=== PATIENT | male | born 1950 | race Caucasian/White ===

== ENCOUNTER 2023-06-09 08:01 | Day surgery (SDC) | payer MEDICARE, SELFPAY ==
[2023-06-09 08:32] VITALS: BP 142/76; PULSE 66; RESP 20; TEMP 36.8; O2SAT 98
[2023-06-09] MEDS: Lactated Ringers 1,000 ML 100 ML IVCONT (08:45)
--- NOTE | 2023-06-09 08:49 | P.CONAN_ITS ---
HPI - Anesthesia Eval Consult details Narrative: Colonoscopy [facility] Past Medical History Medical History (Updated 06/08/23 @ 14:18 by Vidhya Rizvi RN) Arthritis Cataracts, bilateral Degenerative disc disease, thoracic Family History Family history of problems with anesthesia: No Surgical History Surgical History (Updated 06/08/23 @ 14:18 by Vidhya Rizvi RN) H/O colonoscopy H/O knee surgery History of back surgery History of Problems with Anesthesia: No Social History Social History Patient Tobacco Use Status: Never used Tobacco Are you DNR?: No Advance Directives: No Advance Directives Information Provided: Yes Meds Allergies Allergy/AdvReac Type Severity Reaction Status Date / Time No Known Allergies Allergy Verified 06/08/23 14:18 Active Medications: Current Medications Lactated Ringer's (Lr) 1,000 mls @ 100 mls/hr IVCONT .Q10H [place] Last Admin: 06/09/23 08:45 Dose: 100 mls/hr Home Medications Medication Instructions Recorded Confirmed Last Taken Type Multi Vitamin 06/08/23 06/08/23 Unknown History Exam Exam Date and Time: June 09, 2023 0849 Height,Weight and Vital Signs: Height 5 ft 11 in Weight 97.522 kg Last Vital Signs Temp 98.3 F 06/09/23 08:32 Pulse 66 06/09/23 08:32 Resp 20 06/09/23 08:32 BP 142/76 H 06/09/23 08:32 Pulse Ox 98 06/09/23 08:32 O2 Del Method Room Air 06/09/23 08:32 Airway Mallampati Class: II TM Dist: >3cm Heart: rrr Lungs: cta Assessment and Plan Assessment Anesthesia Assessment: Anesthesia Plan Discussed and Chart Reviewed Final Anesthetic Review Family History of Problems with Anesthesia: No History of Problems with Anesthesia: No NPO: Yes ASA Class: II Final Preanesthetic Review: No Changes in Pt Med Stat, Meds/Allgs Chart Reviewed, Consent Obtained/Reviewed and Anes Risks/Benef Reviewed Patient Risk: Low Procedure Risk: Low Anesthetic Plan Anesthetic Plan: MAC: and Agree w/ Assess. and Plan Disposition: Standard PACU
--- NOTE | 2023-06-09 09:36 | P.HPSUR_ITS ---
Pre-Procedural Eval Section A Date of Service: 06/09/23 Section B Chief Complaint: Encounter for screening for malignant neoplasm Details of Present Illness: see H&P no changes Relevant Family History (Specify if Yes): No Relevant Social History: None Present Medications: see Short Stay Collaborative assessment Medical History: No relevant PMH History of Previous Operations: No relevant previous surgery Allergies: Allergies Allergy/AdvReac Type Severity Reaction Status Date / Time No Known Allergies Allergy Verified 06/08/23 14:18 Review of Systems Sugical H&P ROS: Negative: Constitution, Cardiovascular, Respiratory, Neurologic al, Psychiatric, Hem-Onc, Allergic/Immunologic, Gastrointestinal, Genitourinary, Musculoskeletal, Integumentary, Endocrine and Eyes/Ears/Nose/Throat Exam Surgical H&P Exam: Normal: HEENT, Normal: Heart, Normal: Lungs, Normal: Extremities, Normal: Abdomen, Normal: Skin and Normal: Neurological Plan Diagnosis/Plan: Unchanged I have reviewed the history and physical and performed a pertinent physical examination on my patient. No changes have occurred unless specified. Time Spent With Patient Time: Total time managing care of this patient today ____ minutes.
--- NOTE | 2023-06-09 10:06 | P.BOP_ITS ---
Brief Operative Note Date of Service: 06/09/23 Surgeon: Ar Beach Anesthesia: GETA and MAC Was an Crop Duster Helper used for this Procedure?: No Estimated blood loss (mL): 2 Pathology: other Condition: stable Disposition: PACU
[2023-06-09 10:11] VITALS: BP 120/79; PULSE 66; RESP 18; TEMP 36.1; O2SAT 93
[2023-06-09 10:26] VITALS: BP 146/82; PULSE 59; RESP 18; TEMP 36.2; O2SAT 96
--- NOTE | 2023-06-09 12:50 | OP_ITS ---
DATE OF SERVICE: 06/09/2023 SURGEON: Ar Beach MD INDICATIONS: Colon cancer screening. PREOPERATIVE DIAGNOSIS: POSTOPERATIVE DIAGNOSIS: PROCEDURE PERFORMED: Colonoscopy to the terminal ileum with biopsy. ESTIMATED BLOOD LOSS: COMPLICATIONS: ANESTHESIA: Monitored anesthesia care. ASSISTANTS: SPECIMENS: DESCRIPTION OF PROCEDURE: A history and physical was performed. The risks and benefits of the procedure were explained to the patient. Informed consent was obtained. The patient was placed in the left lateral decubitus position. A digital rectal exam was performed and was found to be normal. The Olympus pediatric video colonoscope was introduced into the rectum and advanced to the cecum. The cecum was identified by transillumination, palpation, and identification of ileocecal valve examination was performed. The scope was removed. He tolerated the procedure well and was returned to the recovery area in stable condition. FINDINGS: The terminal ileum was examined and appeared normal. The visualized colonic mucosa was normal. The quality of the prep was good. A single polyp measuring less than 5 mm was identified at 35 cm from the anal verge. This was removed with a biopsy forceps. No other polyps were identified. Retroflexed examination showed small internal hemorrhoids. There was very mild sigmoid diverticulosis. IMPRESSION: Colon polyp. RECOMMENDATION: Follow up the biopsy results. MD EM Goodwin/MARCELLOL / [id number]
== END 2023-06-09 10:42 | disposition home or self-care (01) ==
PROVIDERS: Visit Provider Internal Medicine Gastroenterology
PROC: 0DJD8ZZ Inspection of Lower Intestinal Tract, Via Natural or Artificial Opening Endoscopic (ICD-10-PCS; CPT 45378; principal; 2023-06-09 09:20)
DX: Z12.11 Encounter for screening for malignant neoplasm of colon (principal); K63.5 Polyp of colon; K57.30 Diverticulosis of large intestine without perforation or abscess without bleeding; K64.8 Other hemorrhoids; Z80.42 Family history of malignant neoplasm of prostate; M19.90 Unspecified osteoarthritis, unspecified site
CPT/HCPCS: 45380; 88305; J3010

== ENCOUNTER 2024-01-15 09:11 | Outpatient (AMB) | payer MEDICARE, SELFPAY ==
[2024-01-15 10:20] VITALS: BP 120/72; PULSE 83; TEMP 36.5; O2SAT 96; BMI 30.4
--- NOTE | 2024-01-15 10:20 | AM.OFFWIN_ITS ---
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 Pt does not have a Primary care doctor and has not been seen for years. Denies any chronic conditions. In ofice A1C: 5.8% (PreDM). Explained to Pt that sometimes low levels of Vitamin D, Folic acid or B12 could contribute to his symptoms. [facility] Medical History (Updated 06/08/23 @ 14:18 by Vidhya Rizvi RN) Cataracts, bilateral Arthritis Degenerative disc disease, thoracic Surgical History (Updated 06/08/23 @ 14:18 by Vidhya Rizvi RN) History of back surgery H/O knee surgery H/O colonoscopy Social History Patient Tobacco Use Status: Never used Tobacco Review of Systems Const All systems reviewed & are unremarkable except as noted in HPI and below Physical Exam Vital Signs: Last Vital Signs Temp 97.7 F 01/15/24 10:20 Pulse 83 01/15/24 10:20 BP 120/72 01/15/24 10:20 Pulse Ox 96 01/15/24 10:20 Oxygen Delivery Method Room Air 01/15/24 10:20 BMI result Body Mass Index 30.4 Const General: comfortable and no acute distress Orientation/consciousness: patient oriented x3 Neuro General: patient oriented x3, gait normal and no focal motor deficits Motor exam (neuro): 5/5 motor strength present throughout Extrem General: Yes capillary refill normal Right lower extremity: normal to inspection, full ROM and foot Details: no edema; no laceration and no ecchymosis Left lower extremity: normal to inspection, full ROM and foot Details: normal capillary refill Psych Speech and movement: Clear speech present Attitude: cooperative Results AMB Hemoglobin A1c AMB Hemoglobin A1c 5.8 % Last Edit by ZAKI Benson on 01/15/24 11 :11 Results Reviewed Results Reviewed: Laboratory Last Values Hgb A1c (Clinic) 5.8 % (4.0-6.0) 01/15/24 11:10 Assessment & Plan Assessment & Plan (1) Peripheral neuropathy: Code(s): G62.9 - Polyneuropathy, unspecified Qualifiers: Peripheral neuropathy type: polyneuropathy, unspecified Qualified Code(s): G62.9 - Polyneuropathy, unspecified Plan: - Ordered Lab work - Pt will need to establish with new PCP. Orders: Orders Vitamin B12 and Folate Today G62.9 - Polyneuropathy, unspecified AMB Hemoglobin A1c Today Z13.9 - Encounter for screening, unspecified Complete Blood Count Auto Diff Today G62.9 - Polyneuropathy, unspecified Vitamin D 25-OH Total Today G62.9 - Polyneuropathy, unspecified Coding Level of Care Code New Pt Level 3 (86284) Diagnoses Peripheral polyneuropathy G62.9 Peripheral neuropathy type: polyneuropathy, unspecified Time Spent (min) 15
== END 2024-01-15 11:23 | disposition home or self-care (01) ==
PROVIDERS: Visit Provider Nurse Practitioner Family
DX: G62.9 Polyneuropathy, unspecified (principal); R73.03 Prediabetes
CPT/HCPCS: 83036; 99203

== ENCOUNTER 2024-01-15 11:13 | Outpatient (REF) | payer MEDICARE, SELFPAY ==
[2024-01-15 13:14] LABS: MANUAL DIFF FLAG NO
[2024-01-15 13:32] LABS: Basophils Absolute Auto 0.1 X10*3/uL (0.0-0.2); Basophils Percent Auto 0.8 % (0-2); Eosinophils Absolute Auto 0.3 X10*3/uL (0.0-0.4); Eosinophils Percent Auto 3.8 % (0-4); Hematocrit 47.9 % (42.0-52.0); Hemoglobin 16.3 g/dl (14.0-18.0); Imm Gran Abs Auto 0.02 X10*3/uL (0.00-0.03); Imm Gran Pct Auto 0.3 % (0.0-0.4); Lymphocytes Absolute Auto 1.9 X10*3/uL (1.2-4.9); Mean Corpuscular Hemoglobin 32.1 pg (27.0-33.0); Mean Corpuscular Volume 94.5 fL (80.0-98.0); Mean Platelet Volume 12.2 fL (9.4-12.4); Monocytes Absolute Auto 0.7 X10*3/uL (0.1-1.2); Monocytes Percent Auto 10.6 % (2-11); Neutrophils Absolute Auto 3.7 x10*3/uL (2.0-8.3); Neutrophils Percent Auto 56.5 % (45-73); Platelet Count 159 X10*3/uL (160-400); Red Blood Count 5.07 X10*6/uL (4.60-5.80); Red Cell Distribution Width 12.7 % (11.0-16.0); White Blood Count 6.6 X10*3/uL (4.8-10.8)
[2024-01-15 14:41] LABS: Folate 15.2 ng/mL (> or = 4.0); Vitamin B12 849 pg/mL (200-900)
[2024-01-15 15:04] LABS: Vitamin D 25-OH Total 46.4 ng/mL (>30)
== END 2024-01-15 11:14 | disposition home or self-care (01) ==
LOC: HO.HMGCLDS 11:13
PROVIDERS: PCP Nurse Practitioner Family; Visit Provider Nurse Practitioner Family
DX: G62.9 Polyneuropathy, unspecified (principal)
CPT/HCPCS: 36415; 82306; 82607; 82746; 85025

== ENCOUNTER 2024-03-11 08:55 | Outpatient (AMB) | payer MEDICARE, SELFPAY ==
[2024-03-11 09:06] VITALS: BP 128/76; PULSE 77; RESP 14; TEMP 36.6; O2SAT 99; BMI 29.0
--- NOTE | 2024-03-11 09:06 | A.OFFPC_ITS ---
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: No Accompanied by: Self / Same As Patient Allergies No Known Allergies Allergy (Verified 03/11/24 09:20) Medication List - Last Reconciled 03/11/24 by Owen Knott CNP [Multi Vitamin ] Tobacco use date assessed: 03/11/24 Fall risk assessment: No Falls in past year Last assessed Fall Risk: 03/11/24 Dental Screening Dental Screen Date: 03/11/24 Did you have a dental visit in the last 12 months?: Yes Did you have a dental problem in the last 6 months where you did not have access to dental care?: No Was dental information given to patient?: Patient has dentist HPI HPI Comments History of Present Illness Details New patient Prior PCP:?[facility] Dr. Al Last office visit/CPE: About 4 years Acute issue(s): BLE peripheral neuropathy Reports persistent burning sensation to the toes of both feet for the past 4 months -Not on meds He had CBC, A1c, vit D, vit b12, and folate labs done in January 2024 PMHx: Prediabetes, BLE peripheral neuropathy, back arthritis, thoracic degenerative disc disease, SurgHx: Bilateral cataract surgery, herniated disc surgery, cataract removal with insertion of prosthetic lens both eyes in 06/2022 FHx: Brother: Thyroid disease SocHx: Nonsmoker. Nondrinker. No recreation drugs. Last eye appointment was in [address] Ross Last colonoscopy was with [facility] in 06/2023: Benign polyps. Due to f/u in 10 years Up-to-date on shingles, PNA, and flu vaccines [facility] Medical History Cataracts, bilateral Arthritis Degenerative disc disease, thoracic Surgical History (Updated 03/11/24 @ 09:14 by ZAKI Gonzalez) H/O cataract removal with insertion of prosthetic lens History of back surgery H/O knee surgery H/O colonoscopy Family History Family/Other Thyroid disease Social History Household Members: None Both parents involved: No Caregiver staying overnight: No Housing: House Are you a primary hourly caregiver to a significant other at home: No Do you presently have visiting nurse or other home services: No 75 years or older and lives alone: No Alcohol intake: never Patient Tobacco Use Status: Never used Tobacco e-Cigarette/Vaping Use: Never Used service: Yes Current occupational status: employed and retired Cognitive needs: No Hearing needs: No Vision needs: No Questionnaire PHQ-9 Over the last 2 weeks, how often have you been bothered by any of the following problems? 1. Little interest or pleasure in doing things: not at all 2. Feeling down, depressed, or hopeless: not at all 3. Trouble falling or staying asleep, or sleeping too much: not at all 4. Feeling tired or having little energy: not at all 5. Poor appetite or overeating: not at all 6. Feeling bad about yourself - or that you are a failure or have let yourself or your family down: not at all 7. Trouble concentrating on things, such as reading the newspaper or watching television: not at all 8. Moving or speaking so slowly that other people could have noticed. Or the opposite - being so fidgety or restless that you have been moving around a lot more than usual: not at all 9. Thoughts that you would be better off or of hurting yourself in some way: not at all Total score: 0 Depression Screening Interpretation: Negative Depression Screening Done: Yes 36229 - PHQ-9 Billing: Yes Source: Developed by Drs. Paul Babb, Stephanie Sousa, Jamie Daniel and colleagues, with an educational sam from [employer]. Thrive Questionnaire Date Thrive assessed: 03/11/24 I am a: Patient What is your living situation today?: I have a steady place to live Within the past 12 months, did the food you bought not last and you didn't have the money to get more?: Never true Within the past 12 months, did you worry whether your food would run out before you got money to buy more?: Never true Do you have trouble paying for medicines?: No Do you have trouble getting transportation to medical appointments?: No Do you have trouble paying your heating and electricity bill?: No Do you have trouble taking care of your child, family member or friend?: No Do you have trouble with day-to-day activities such as bathing, preparing meals, shopping, managing finances, etc.?: No Are you currently unemployed and looking for a job?: No Are you interested in more education?: No Please select the resources that you would like help with: None Currently or been in a relationship where the following occur: no concerns reported THRIVE Score: 0 AUDIT C Alcohol Use Questionnaire (AUDIT-C) 1. How often do you have a drink containing alcohol?: Never 3. How often do you have six or more drinks on one occasion?: Never Total Score: 0 HAYDEN-7 AMB Questionnaire HAYDEN-7 Date HAYDEN - 7 assessed: 03/11/24 Feeling nervous, anxious, or on edge: 0 = Not at all Not being able to stop or control worryin = Not at all Worrying too much about different things: 0 = Not at all Trouble relaxin = Not at all Being so restless that it is hard to sit still: 0 = Not at all Becoming easily annoyed or irritable: 0 = Not at all Feeling afraid as if something awful might happen: 0 = Not at all Total HAYDEN-7 score (0-4 normal; 5-9 mild; 10-14 moderate; 15-21 severe): 0 Source: Developed by Drs. Paul Babb, Stephanie Sousa, Jamie Daniel and colleagues, with an educational sam from [employer]. HAYDEN-7 Assessment Billing HAYDEN-7 Assessment Tool: HAYDEN-7 Assessment 29692 Review of Systems Const Details: Denies chills, Denies fatigue, Denies fever(s), Denies headache(s) and Denies weakness HEENT Denies change in vision, Denies dizziness, Denies headache(s), Denies hearing loss, Denies nasal congestion, Denies sinus pain, Denies sinus pressure and Denies sore throat Card Denies chest pain, Denies lightheadedness, Denies dyspnea and Denies other (palpitations) Resp Denies cough, Denies dyspnea and Denies wheezing GI Denies abdominal pain, Denies melena, Denies hematochezia, Denies change in bowel habits, Denies dyspepsia and Denies nausea Denies hematuria and Denies dysuria Musc Denies abnormal gait, Denies myalgias, Denies arthralgias, Denies numbness and Denies tingling Skin/Breast Denies rash, Denies unusual bruising and Denies wounds Neuro Denies abnormal gait, Denies dizziness, Denies headache(s), Denies memory loss, Denies numbness, Denies Sensory deficit (Neuro), Denies tingling and Denies weakness Psych Denies anxiety, Denies depression and Denies memory loss Endo Denies cold intolerance, Denies fatigue, Denies heat intolerance, Denies polydipsia and Denies polyuria Cesar/Lymph Denies easy bleeding and Denies easy bruising Aller/Immun Denies wheezing Physical exam (Primary Care) Vital Signs: Last Vital Signs Temp 97.8 F 03/11/24 09:06 Pulse 77 03/11/24 09:06 Resp 14 03/11/24 09:06 BP 128/76 03/11/24 09:06 Pulse Ox 99 03/11/24 09:06 Oxygen Delivery Method Room Air 03/11/24 09:06 BMI result Body Mass Index 29.0 Tobacco/Smoking Status: Tobacco use Status Tobacco use date assessed 03/11/24 03/11/24 09:16 Patient Tobacco Use Status Never used Tobacco 03/11/24 09:16 e-Cigarette/Vaping Use Never Used 03/11/24 09:16 Depression Screening Interpretation: Negative Currently or been in a relationship where the following occur: no concerns rep orted Const Other: General: no acute distress, well developed, alert and awake Nutritional Appearance: well nourished Orientation/consciousness: patient oriented x3 HENMT Head: Yes normocephalic and Yes atraumatic Ears: hearing grossly normal bilaterally and TM's normal bilaterally General nose exam: Normal external nose present and Normal nares present Mouth: Normal oral and palatal mucosa present and moist mucous membranes Teeth and gingiva: dentition normal Throat: Yes oropharynx normal Eyes Pupils: Equal, round and reactive pupils present and Pupil accommodation reflex normal EOM: EOMs intact bilaterally Neck Neck: Yes normal visual inspection, Yes no lymphadenopathy and Yes trachea midline Thyroid: Thyroid normal Carotids: no bruits Lymphatic: no lymphadenopathy noted Chest Chest palpation & inspection: normal inspection of the chest Resp Effort & Inspection: normal respiratory effort Auscultation: clear to auscultation bilaterally Cardio Rate: regular rate Rhythm: regular rhythm Heart sounds: S1 normal heart sound present, S2 normal heart sound present, no gallops, no murmurs and no rubs Bruits: no abdominal aortic bruits and no carotid bruits GI Palpation (GI): No Abdominal aortic bruit present, Soft to palpation, nontender, No hepatosplenomegaly present and No Rebound tenderness present Auscultation: normal bowel sounds General: Yes no CVA tenderness Back/Spine/Pelvis Back: no CVA tenderness Cervical Spine: cervical ROM normal and No Cervical spine tenderness Thoracic/Lumbar Spine: thoraco-lumbar ROM normal, No pain with thoraco-lumbar ROM, No thoracic spinal tenderness and No lumbar spinal tenderness Skin General: warm and dry. Normal skin color. Normal skin turgor Lesions: no lesions Rashes: no rashes Trauma: no lacerations or abrasions Wounds: no wounds Nails: normal Neuro General: patient oriented x3, gait normal and CN's II-XI intact bilaterally Cranial nerves: Yes Equal, round and reactive pupils present Cognition (Neuro): normal cognition Gait exam (Neuro): Normal gait present Motor exam (neuro): 5/5 motor strength present throughout Sensory Exam: No Sensory deficit (Neuro) Deep tendon reflexes (DTR's): Right patellar reflex intensity grade: 2+ and Left patellar reflex intensity grade: 2+ Extrem General: Yes normal to inspection, No edema and No calf tenderness Psych Appearance: grossly normal Affect: normal affect Attitude: cooperative Thought process: Normal thought process present Assessment and Plan Assessment & Plan (1) Normal physical examination, routine: Code(s): Z00.00 - Encounter for general adult medical examination without abnormal findings Plan: No significant physical restrictions or limitations noted Healthy diet and routine exercise encouraged 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 Take as prescribed. Call and report persistent or worsening symptoms within 2 weeks. Follow-up in 4 weeks or return sooner with worsening or new symptoms Verbalized understanding and agreed with treatment plan (3) Prediabetes: Code(s): R73.03 - Prediabetes Plan: Recent A1c was 5.8% Healthy diet and routine exercise encouraged Advised to limit carbs such as rice, bread, potato, or pasta Will continue to monitor Verbalized understanding and agreed with the treatment plan (4) Laboratory tests ordered as part of a complete physical exam (CPE): Code(s): Z00.00 - Encounter for general adult medical examination without abnormal findings Plan: Fasting labs ordered as part of a complete physical exam. Advised to fast for at least 10 hours before getting labs drawn. May drink water Verbalized understanding and agreed with treatment plan. Orders: Orders Lipid Panel Today TSH reflex Free T4 Today PSA, Ultra Sensitive Today Comprehensive [place]. Panel Fast Today UA CC w/rflx Micro + Cult Today Magnesium Today Medications: New gabapentin 300 mg PO BEDTIME 30 days 30 caps 2RF Coding Level of Care Code New Pt Level 3 (75617) New Pt Prev Care >65yr (98777) Diagnoses Normal physical examination, routine Z00.00 Peripheral neuropathy G62.9 Prediabetes R73.03 Laboratory tests ordered as part of a complete physical exam (CPE) Z00.00 Additional Codes HAYDEN-7 Assessment Billing - HAYDEN-7 Assessment Tool: HAYDEN-7 Assessment [id number] ([id number])
== END 2024-03-11 09:47 | disposition home or self-care (01) ==
PROVIDERS: Visit Provider Nurse Practitioner Family
DX: G62.9 Polyneuropathy, unspecified (principal); R73.03 Prediabetes
CPT/HCPCS: 99203; 99213

== ENCOUNTER 2024-03-12 07:15 | Outpatient (REF) | payer MEDICARE, SELFPAY ==
[2024-03-12 11:20] LABS: Appearance Urine Cloudy; Color Urine Yellow; Glucose Urine UA Negative (Negative); Leukocyte Esterase Urine Negative (Negative); Nitrite Urine Negative (Negative); Urine Blood Negative (Negative); Urine Ketones Negative (Negative); Urine Protein Negative (Neg-Trace)
[2024-03-12 12:12] LABS: Alanine Aminotransferase 40 U/L (0-40); Albumin Level 4.3 g/dL (3.5-5.0); Alkaline Phosphatase 77 U/L (39-117); Anion Gap 13 (12-20); Aspartate Amino Transferase 31 U/L (5-37); Bilirubin Total 0.6 mg/dL (0.0-1.0); Blood Urea Nitrogen 31 mg/dL (9-16); Calcium 9.9 mg/dL (8.4-10.2); Carbon Dioxide 27 mmol/L (22-29); Chloride 107 mmol/L (96-108); Cholesterol 166 mg/dL (<200); Estimated Glomerular Filt Rate > 60; Glucose Fasting 102 mg/dL (60-99); HDL Cholesterol 42 mg/dL (>40); LDL Cholesterol Calculated 104 mg/dL (<100); Magnesium 2.2 mg/dL (1.6-2.6); Potassium 4.8 mmol/L (3.3-5.1); Sodium 142 mmol/L (135-145); Total Protein 7.6 g/dL (6.5-8.0); Triglycerides 102 mg/dL (<150)
[2024-03-12 12:29] LABS: TSH reflex Free T4 1.04 uIU/mL (0.32-4.0)
[2024-03-16 21:49] LABS: PSA, Ultra Sensitive 1.21 ng/mL
== END 2024-03-12 07:16 | disposition home or self-care (01) ==
LOC: HO.HMGCLDS 07:15
PROVIDERS: PCP Nurse Practitioner Family; Visit Provider Nurse Practitioner Family
DX: Z00.00 Encounter for general adult medical examination without abnormal findings (principal); Z12.5 Encounter for screening for malignant neoplasm of prostate
CPT/HCPCS: 36415; 80053; 80061; 81003; 83735; 84153; 84443

== ENCOUNTER 2024-04-15 07:44 | Outpatient (AMB) | payer MEDICARE, SELFPAY ==
--- NOTE | 2024-04-15 07:51 | MHC.PC.OV ---
Vital Signs 04/15/24 08:00 Height 5 ft 11 in Weight 206 lb 7 oz BMI 28.8 BP 126/70 Blood Pressure Location Rt brachial Position Sitting Respiration 14 Pulse 61 Pulse Source Pulse Oximeter Temp 97.8 F Temp Source Temporal Artery Scan Pulse Oximetry (%) 99 Intake Visit Reasons: f/u burning in both feet Allergies No Known Allergies Allergy (Verified 04/15/24 08:08) Tobacco use date assessed: 03/11/24 Dental Screening Dental Screen Date: 03/11/24 HPI HPI Comments History of Present Illness Details 74-year-old male presents for burning sensation to the toes of both feet. Gabapentin 300 mg every night was ordered for his symptoms. He admits to taking her medication as prescribed without adverse reactions. He notes significant improvement of his symptoms. He notes that the burning sensation to his toes is less frequent and has not progressed since his last visit. He has an appointment scheduled with Podiatry in June. No acute symptoms. [facility] Medical History Cataracts, bilateral Arthritis Degenerative disc disease, thoracic Surgical History (Updated 03/11/24 @ 09:14 by ZAKI Gonzalez) H/O cataract removal with insertion of prosthetic lens History of back surgery H/O knee surgery H/O colonoscopy Family History Family/Other Thyroid disease Social History Household Members: None Both parents involved: No Caregiver staying overnight: No Housing: House Are you a primary home care physical therapist to a significant other at home: No Do you presently have visiting nurse or other home services: No 75 years or older and lives alone: No Alcohol intake: never Patient Tobacco Use Status: Never used Tobacco e-Cigarette/Vaping Use: Never Used service: Yes Current occupational status: employed and retired Cognitive needs: No Hearing needs: No Vision needs: No Questionnaire Thrive Questionnaire Date Thrive assessed: 03/11/24 HAYDEN-7 AMB Questionnaire HAYDEN-7 Date HAYDEN - 7 assessed: 03/11/24 Source: Developed by Drs. Paul Babb, Stephanie Sousa, Jamie Daniel and colleagues, with an educational sam from [employer]. Review of Systems Const Details: Const Denies chills, Denies fatigue, Denies fever(s), Denies headache(s) and Denies weakness ENT Denies dizziness and Denies headache(s) Card Denies chest pain, Denies lightheadedness, Denies dyspnea and Denies other (Palpitations) Resp Denies cough, Denies dyspnea, Denies wheezing and Denies other ( shortness of breath) GI Denies abdominal pain, Denies melena, Denies hematochezia, Denies change in bowel habits, Denies dyspepsia and Denies nausea Denies hematuria and Denies dysuria Musc Denies abnormal gait, Denies myalgias, Denies arthralgias, Denies numbness and Denies tingling Skin/Breast Denies rash, Denies unusual bruising and Denies wounds Neuro Denies abnormal gait, Denies dizziness, Denies headache(s), Denies memory loss, Denies numbness, Denies Sensory deficit (Neuro), Denies tingling and Denies weakness Psych Denies anxiety, Denies depression, Denies memory loss Endo Denies cold intolerance, Denies fatigue, Denies heat intolerance, Denies polydipsia and Denies polyuria Aller/Immun Denies wheezing Physical exam (Primary Care) BMI result Body Mass Index 28.8 Tobacco/Smoking Status: Tobacco use Status Tobacco use date assessed 03/11/24 04/15/24 07:52 Patient Tobacco Use Status Never used Tobacco 04/15/24 07:52 e-Cigarette/Vaping Use Never Used 04/15/24 07:52 Thrive Assessment: Date of Thrive Assessment Date Thrive assessed 03/11/24 04/15/24 07:52 Const Other: General: no acute distress and well developed Nutritional Appearance: well nourished Orientation/consciousness: patient oriented x3 HENMT Head: Yes normocephalic and Yes atraumatic Eyes General: appearance normal, both eyes and all related structures Pupils: Equal, round and reactive pupils present EOM: EOMs intact bilaterally Resp Effort & Inspection: normal respiratory effort Auscultation: clear to auscultation bilaterally Cardio Rate: regular rate Rhythm: regular rhythm Heart sounds: S1 normal heart sound present, S2 normal heart sound present, no gallops, no murmurs and no rubs GI Palpation (GI): No Abdominal aortic bruit present, Soft to palpation, nontender, No hepatosplenomegaly present and No Rebound tenderness present Auscultation: normal bowel sounds General: Yes no CVA tenderness Back/Spine/Pelvis Back: no CVA tenderness Cervical Spine: cervical ROM normal and No Cervical spine tenderness Thoracic/Lumbar Spine: thoraco-lumbar ROM normal, No pain with thoraco-lumbar ROM, No thoracic spinal tenderness and No lumbar spinal tenderness Extrem General: Yes normal to inspection, No edema and No calf tenderness Skin General: warm and dry. Normal skin color. Normal skin turgor Neuro General: patient oriented x3, gait normal and no focal neuro deficit Cranial nerves: Yes Equal, round and reactive pupils present Cognition (Neuro): normal cognition Gait exam (Neuro): Normal gait present Sensory Exam: No Sensory deficit (Neuro) Psych Appearance: grossly normal Affect: normal affect Attitude: cooperative Thought process: Normal thought process present Assessment and Plan Assessment & Plan (1) Peripheral neuropathy: Code(s): G62.9 - Polyneuropathy, unspecified Plan: Reports significant improvement with current treatment regimen Burning sensation to his toes is less frequent and has not progressed since his last visit Continue to take gabapentin 300 mg every night Encouraged to follow-up with Podiatry as planned Return in 6 months for health maintenance or sooner with worsening or new symptoms Verbalized understanding and agreed with the treatment plan (2) Laboratory tests ordered as part of a complete physical exam (CPE): Code(s): Z00.00 - Encounter for general adult medical examination without abnormal findings Plan: Recent labs reviewed with the patient; unremarkable for an except for slightly elevated fasting glucose. He he has a prediabetic. Healthy diet and routine exercise encouraged. Advised to limit carbs such as rice, pasta, potatoes, and bread Verbalized understanding and agreed with the treatment plan Coding Level of Care Code Est Pt Level 3 (09925) Diagnoses Peripheral neuropathy G62.9 Laboratory tests ordered as part of a complete physical exam (CPE) Z00.00
[2024-04-15 08:00] VITALS: BP 126/70; PULSE 61; RESP 14; TEMP 36.6; O2SAT 99; BMI 28.8
== END 2024-04-15 08:12 | disposition home or self-care (01) ==
PROVIDERS: PCP Nurse Practitioner Family; Visit Provider Nurse Practitioner Family
DX: G62.9 Polyneuropathy, unspecified (principal); Z00.00 Encounter for general adult medical examination without abnormal findings
CPT/HCPCS: 99213

== ENCOUNTER 2024-10-17 08:47 | Outpatient (AMB) | payer MEDICARE, SELFPAY ==
--- NOTE | 2024-10-17 08:50 | MHC.PC.OV ---
Vital Signs 10/17/24 08:54 10/17/24 09:10 Height 5 ft 11 in Weight 204 lb 4 oz BMI 28.5 BP 147/76 H 124/80 Blood Pressure Location Rt brachial Lt brachial Position Sitting Sitting Respiration 16 Pulse 71 Pulse Source Pulse Oximeter Temp 97.0 F Temp Source Temporal Artery Scan Pulse Oximetry (%) 99 Oxygen Delivery Method Room Air Intake Visit Reasons: 6 month health maintenance Intake Note: [facility] Required: No Allergies No Known Allergies Allergy (Verified 10/17/24 09:09) Medication List - Last Reconciled 10/17/24 by Owen Knott CNP gabapentin 300 mg PO BEDTIME 30 days [Multi Vitamin ] Tobacco use date assessed: 10/17/24 Fall risk assessment: No Falls in past year Last assessed Fall Risk: 10/17/24 Dental Screening Dental Screen Date: 10/17/24 Did you have a dental visit in the last 12 months?: Yes Did you have a dental problem in the last 6 months where you did not have access to dental care?: No Was dental information given to patient?: Patient has dentist HPI HPI Comments History of Present Illness Details The patient is a 74-year-old male presenting for a health maintenance follow-up visit. He has a history of prediabetes and peripheral neuropathy affecting both lower extremities. He also has osteoarthritis affecting his spine. Additionally, the patient has thoracic degenerative disease. He reports no current complaints and is adherent to his prescribed medication regimen of gabapentin for neuropathy. Health Maintenance - Advised the patient to continue a healthy diet. - Recommended regular exercise. - Ordered blood work to be done 2-3 days prior to the next visit, ensuring fasting for 10-12 hours and maintaining hydration with water only. - Scheduled a follow-up visit for physical examination in five months. [facility] Medical History (Updated 10/17/24 @ 09:17 by Owen Knott CNP) Cataracts, bilateral Arthritis Degenerative disc disease, thoracic Surgical History H/O cataract removal with insertion of prosthetic lens History of back surgery H/O knee surgery H/O colonoscopy Family History Family/Other Thyroid disease Social History (Reviewed 06/07/24 @ 08:08 by CARLEY Gonzalez Household Members: None Both parents involved: No Caregiver staying overnight: No Housing: House Are you a primary healthcare marketer to a significant other at home: No Do you presently have visiting nurse or other home services: No 75 years or older and lives alone: No Alcohol intake: never Patient Tobacco Use Status: Never used Tobacco e-Cigarette/Vaping Use: Never Used service: Yes Current occupational status: employed and retired Cognitive needs: No Hearing needs: No Vision needs: No Questionnaire PHQ-9 Over the last 2 weeks, how often have you been bothered by any of the following problems? 1. Little interest or pleasure in doing things: not at all 2. Feeling down, depressed, or hopeless: not at all 3. Trouble falling or staying asleep, or sleeping too much: not at all 4. Feeling tired or having little energy: not at all 5. Poor appetite or overeating: not at all 6. Feeling bad about yourself - or that you are a failure or have let yourself or your family down: not at all 7. Trouble concentrating on things, such as reading the newspaper or watching television: not at all 8. Moving or speaking so slowly that other people could have noticed. Or the opposite - being so fidgety or restless that you have been moving around a lot more than usual: not at all 9. Thoughts that you would be better off or of hurting yourself in some way: not at all Total score: 0 92238 - PHQ-9 Billing: Yes Source: Developed by Drs. Paul Babb, Stephanie Sousa, Jamie Daniel and colleagues, with an educational sam from [employer]. Thrive Questionnaire Date Thrive assessed: 10/17/24 I am a: Patient What is your living situation today?: I have a steady place to live Within the past 12 months, did the food you bought not last and you didn't have the money to get more?: Never true Within the past 12 months, did you worry whether your food would run out before you got money to buy more?: Never true Do you have trouble paying for medicines?: No Do you have trouble getting transportation to medical appointments?: No Do you have trouble paying your heating and electricity bill?: No Do you have trouble taking care of your child, family member or friend?: No Do you have trouble with day-to-day activities such as bathing, preparing meals, shopping, managing finances, etc.?: No Are you currently unemployed and looking for a job?: No Are you interested in more education?: No Please select the resources that you would like help with: None Currently or been in a relationship where the following occur: No concerns reported THRIVE Score: 0 AUDIT C Alcohol Use Questionnaire (AUDIT-C) 1. How often do you have a drink containing alcohol?: Monthly or less 2. How many drinks containing alcohol do you have on a typical day when you are drinking?: 1 or 2 3. How often do you have six or more drinks on one occasion?: Never Total Score: 1 HAYDEN-7 AMB Questionnaire HAYDEN-7 Date HAYDEN - 7 assessed: 10/17/24 Feeling nervous, anxious, or on edge: 0 = Not at all Not being able to stop or control worryin = Not at all Worrying too much about different things: 0 = Not at all Trouble relaxin = Not at all Being so restless that it is hard to sit still: 0 = Not at all Becoming easily annoyed or irritable: 0 = Not at all Feeling afraid as if something awful might happen: 0 = Not at all Total HAYDEN-7 score (0-4 normal; 5-9 mild; 10-14 moderate; 15-21 severe): 0 Source: Developed by Drs. Paul Babb, Stephanie Sousa, Jamie Daniel and colleagues, with an educational sam from [employer]. HAYDEN-7 Assessment Billing HAYDEN-7 Assessment Tool: HAYDEN-7 Assessment 91261 Review of Systems Const Details: Const Denies chills, Denies fatigue, Denies fever(s), Denies headache(s) and Denies weakness ENT Denies dizziness and Denies headache(s) Card Denies chest pain, Denies lightheadedness, Denies dyspnea and Denies other (Palpitations) Resp Denies cough, Denies dyspnea, Denies wheezing and Denies other ( shortness of breath) GI Denies abdominal pain, Denies melena, Denies hematochezia, Denies change in bowel habits, Denies dyspepsia and Denies nausea Denies hematuria and Denies dysuria Musc Denies abnormal gait, Denies myalgias, Denies arthralgias, Denies numbness and Denies tingling Skin/Breast Denies rash, Denies unusual bruising and Denies wounds Neuro Denies abnormal gait, Denies dizziness, Denies headache(s), Denies memory loss, Denies numbness, Denies Sensory deficit (Neuro), Denies tingling and Denies weakness Psych Denies anxiety, Denies depression, Denies memory loss Endo Denies cold intolerance, Denies fatigue, Denies heat intolerance, Denies polydipsia and Denies polyuria Aller/Immun Denies wheezing Physical exam (Primary Care) Vital Signs: Last Vital Signs Temp 97.0 F 10/17/24 08:54 Pulse 71 10/17/24 08:54 Resp 16 10/17/24 08:54 BP 147/76 H 10/17/24 08:54 Pulse Ox 99 10/17/24 08:54 Oxygen Delivery Method Room Air 10/17/24 08:54 BMI result Body Mass Index 28.5 Tobacco/Smoking Status: Tobacco use Status Tobacco use date assessed 10/17/24 10/17/24 08:56 Patient Tobacco Use Status Never used Tobacco 10/17/24 08:53 e-Cigarette/Vaping Use Never Used 10/17/24 08:53 PHQ-9: PHQ-9 Score PHQ-9: Total score 0 10/17/24 08:53 Thrive Assessment: Date of Thrive Assessment Date Thrive assessed 10/17/24 10/17/24 08:53 Currently or been in a relationship where the following occur: No concerns reported Const Other: General: no acute distress and well developed Nutritional Appearance: well nourished Orientation/consciousness: patient oriented x3 HENMT Head: Yes normocephalic and Yes atraumatic Eyes General: appearance normal, both eyes and all related structures Pupils: Equal, round and reactive pupils present EOM: EOMs intact bilaterally Resp Effort & Inspection: normal respiratory effort Auscultation: clear to auscultation bilaterally Cardio Rate: regular rate Rhythm: regular rhythm Heart sounds: S1 normal heart sound present, S2 normal heart sound present, no gallops, no murmurs and no rubs GI Palpation (GI): No Abdominal aortic bruit present, Soft to palpation, nontender, No hepatosplenomegaly present and No Rebound tenderness present Auscultation: normal bowel sounds General: Yes no CVA tenderness Back/Spine/Pelvis Back: no CVA tenderness Cervical Spine: cervical ROM normal and No Cervical spine tenderness Thoracic/Lumbar Spine: thoraco-lumbar ROM normal, No pain with thoraco-lumbar ROM, No thoracic spinal tenderness and No lumbar spinal tenderness Extrem General: Yes normal to inspection, No edema and No calf tenderness Skin General: warm and dry. Normal skin color. Normal skin turgor Lesions: no lesions Rashes: no rashes Trauma: no lacerations or abrasions Wounds: no wounds Nails: normal Neuro General: patient oriented x3, gait normal and no focal neuro deficit Cranial nerves: Yes Equal, round and reactive pupils present Cognition (Neuro): normal cognition Gait exam (Neuro): Normal gait present Sensory Exam: No Sensory deficit (Neuro) Psych Appearance: grossly normal Affect: normal affect Attitude: cooperative Thought process: Normal thought process present Coding Level of Care Code Est Pt Level 3 (34843) Diagnoses Peripheral neuropathy G62.9 Prediabetes R73.03 Osteoarthritis of spine M47.9 Degenerative disc disease, thoracic M51.34 Laboratory tests ordered as part of a complete physical exam (CPE) Z00.00 Additional Codes HAYDEN-7 Assessment Billing - HAYDEN-7 Assessment Tool: HAYDEN-7 Assessment 29573 ([id number]) PHQ-9 - 43759 - PHQ-9 Billing: Yes ([id number]) Assessment & Plan Assessment & Plan (1) Peripheral neuropathy: Code(s): G62.9 - Polyneuropathy, unspecified Category: Medical Plan: Continue current treatment with gabapentin as prescribed. (2) Prediabetes: Code(s): R73.03 - Prediabetes Category: Medical Plan: Continue current management with lifestyle modifications including diet and exercise. Plan for follow-up lab testing before the next appointment. (3) Osteoarthritis of spine: Code(s): M47.9 - Spondylosis, unspecified Category: Medical Plan: No changes to current management as no specific complaints were reported. (4) Degenerative disc disease, thoracic: Code(s): M51.34 - Other intervertebral disc degeneration, thoracic region Category: Medical Plan: Continue current management with no changes due to the absence of specific complaints or reported symptoms. (5) Laboratory tests ordered as part of a complete physical exam (CPE): Code(s): Z00.00 - Encounter for general adult medical examination without abnormal findings Category: Medical Plan: Fasting labs ordered as part of a complete physical exam. Advised to fast for at least 10 hours before getting labs drawn. May drink water Verbalized understanding and agreed with treatment plan. Plan I discussed with the patient the continuation of his current treatment plans as he reports no new complaints and all exam findings were normal. I reiterated the importance of maintaining a healthy lifestyle and adhering to a regular exercise regimen to manage his prediabetes and overall well-being. We also reviewed the necessity of fasting before his upcoming lab tests. The patient was informed to schedule his blood work two or three days before his next physical examination and to follow up in five months. He was advised to contact me sooner if there are any changes in his health status. Orders: Orders Lipid Panel Today Z00.00 - Encounter for general adult medical examination without abnormal findings TSH reflex Free T4 Today Z00.00 - Encounter for general adult medical examination without abnormal findings Hemoglobin A1c Today R73.03 - Prediabetes Complete Blood Count Auto Diff Today Z00.00 - Encounter for general adult medical examination without abnormal findings Comprehensive [place]. Panel Fast Today Z00.00 - Encounter for general adult medical examination without abnormal findings UA CC w/rflx Micro + Cult Today Z00.00 - Encounter for general adult medical examination without abnormal findings PSA, Ultra Sensitive Today Z00.00 - Encounter for general adult medical examination without abnormal findings Microalbumin, Random (w Creat) Today Z00.00 - Encounter for general adult medical examination without abnormal findings Patient Instructions: - Continue current treatment with gabapentin as prescribed. - Adhere to a healthy diet and regular exercise routine. - Schedule blood work 2-3 days prior to the next appointment, ensuring 10-12 hours of fasting. - Follow up in five months for a physical examination. - Return sooner if there are any changes in symptoms or health status. Patient was informed and verbally consented to the use of an ambient scribe for clinic note documentation during this visit.
[2024-10-17 08:54] VITALS: BP 147/76; PULSE 71; RESP 16; TEMP 36.1; O2SAT 99; BMI 28.5
[2024-10-17 09:10] VITALS: BP 124/80
== END 2024-10-17 09:15 | disposition home or self-care (01) ==
PROVIDERS: PCP Nurse Practitioner Family; Visit Provider Nurse Practitioner Family
DX: G62.9 Polyneuropathy, unspecified (principal); R73.03 Prediabetes; M47.9 Spondylosis, unspecified; M51.34 Other intervertebral disc degeneration, thoracic region; Z00.00 Encounter for general adult medical examination without abnormal findings

== ENCOUNTER → 2024-10-17 08:47 | Outpatient (BNVA) | payer MEDICARE, SELFPAY | PROVIDERS: PCP Nurse Practitioner Family; Visit Provider Nurse Practitioner Family | DX: G62.9 Polyneuropathy, unspecified (principal); R73.03 Prediabetes; M47.9 Spondylosis, unspecified; M51.34 Other intervertebral disc degeneration, thoracic region | CPT/HCPCS: 96127; 99212 ==

== ENCOUNTER 2025-03-13 06:02 | Outpatient (REF) | payer MEDICARE, SELFPAY ==
--- OUTSIDE RECORDS SUMMARY | 2025-03-13 06:04 | XMS_ITS ---
Author Organization [facility] Rene balbuena [place] Address [address] [place] [address] Care Team Providers Care Red Mud Thickener Operator Name Role Phone Nikos ESTATE PLANNING ATTORNEY, [facility] Primary Care Provider Unavail able Raffy Guzman Unavailable [phone] Geoffrey Quinteros Unavailable [phone] REASON FOR VISIT for sooner apt Medications [...] other tobacco user? No Vital Signs Height [id number] in 06/15/2024 Weight 206 lbs 06/15/2024 BMI 28.73 kg/m2 06/15/2024 Encounters Encounter Location Date Provider Diagnosis [facility] [address] [place] [address] 06/15/2024 Geoffrey Quinteros Plan Of Treatment No Information Progress Notes * Daniel DARBY MDOB:1950 (74 yo M)Acc No.[id number]:06/15/2024 Progress Notes Patient:?Daniel DARBY Provider:?Geoffrey Quinteros DPM :1950???Age:74 Y???Sex:Male Jairo e:06/15/2024 Address: [address] [id number] Pcp:Monse Knott NP Subjective: * Chief Complaints: * ???1. For sooner apt. * ROS:?General/Constitutional:?Nausea?denies.?Vomiting?denies.?Hunger Thirst?denies.?Loss appetite?denies.?Chills?denies.?Fatigue?denies.?Fever?denies.?Night Sweats?denies.?Unexplained weight loss?denies.?Unexplained weight gain?denies.?HEENTM:?Dentures?denies.?Dizziness?denies.?Glasses/contacts?denies.?Retinopathy?de nies.?Blurred/double vision?denies.?TMJ?denies.?Discharge/drainage?denies.?Implants?denies.?Sore throat?denies.?Dental implants?admits.?Hard of hearing ?denies.?Difficulty chewing/swallowing/speaking?denies.?Nose bleeds?denies.?Sore mouth?denies.?Respiratory:?On Oxygen?denies.?Pneumonia/pleurisy?denies.?Bronchitis?denies.?Emphysema?denies.?C oughing?denies.?Cough blood?denies.?Shortness of breath?denies.?Wheezing?denies.?Cardiovascular:?Pacemaker?denies.?MVP?denies.?WPW?denies.?CHF?denies.?Heart attack?denies.?Septal defect?denies.?Rapid beat?denies.?Chest pain ?denies.?Atrial Fib.?denies.?Murmur/Palpitations?denies.?Gastrointestinal:?Hemorrhoids?admits.?Stomach/Abdominal pain?denies.?Dark blood stool?denies.?Irritable bowel ?denies.?Constipation?denies.?Diarrhea?denies.?Hematology:?Swelling?denies.?Clots?denies.?Varicose Veins?denies.?Bruising?denies.?Bleeding problem?denies.?Genitourinary:?Blood urine?denies.?Frequent/Painfu/urination/bladder control?denies.?Kidney stones?denies.?Infection (UTI)?denies.?Nephropathy?denies.?sex trans dis (STD)?denies.?Prostate?denies.?Musculoskeletal:?Hammertoes?denies.?Bunions?admits.?Back Pain?denies.?Muscle Cramps/ Resting?denies.?Muscle cramps / walking?denies.?Generalized aches and pains?denies.?Weakness?denies.?Integ.:?Coker?denies.?Scars?admits.?Corns/calluses?denies.?Ingrown nails?denies.?Painful nails?denies.?Open Sores?denies.?Rashes?denies.?Neurologic:?Difficulty sleeping?denies.?Brain disorder?denies.?Numbness?denies.?Balance trouble?denies.?Confusion?denies.?Fainting/blackouts?denies.?Tingling?admits.?Tr emors?denies.? * Medical History:?Measles, Mu mps, Chicken pox. * Surgical History:?cataract s urgery 06/2022, back surgery 02/2006, knee surgery, right 02/1972. * Family History:?Mother: dece ased.?Father: , diagnosed with Unspecified heart disease, Other malignant neoplasm of unspecified site.? * Social History:?Tobacco Use:?Tobacco Use/Smoking?Are you a:?nonsmoker ?Additional Findings: Tobacco Non-User?Current non-smoker ?Tobacco use other than smoking?Are you an other tobacco user??No ???Drugs/Alcohol:?Drugs?Have you used drugs other than those for medical reasons in the past 12 months??No ?Alcohol Screen?Did you have a drink containing alcohol in the past year??No ?Points?0 ?Interpretation?Negative ???Miscellaneous:?Caffeine: no. ?Children: yes. ?Exercise: yes, Golf, fishing. ?Marital status: . ?Occupation: Retired. * Medications:?Taking Gabapent in 300 MG Capsule 1 capsule Orally at bedtime Objective: * Vitals:?Ht: [id number], Wt:206, BMI:28.73, Shoe size: 11W, Ht-cm: 180.34 cm, Wt-k.44 kg. Assessment: Plan: * Treatment: * Images: * The named appointment provid er may or may not be the originator of this progress note, and it is not deemed complete until electronically signed by the appointment provider. Sign off status: Pending * Provider:?Geoffrey Quinteros DPM Date:? 024 Generated for Armida magaña/Mendoza/Lucian on:?03/13/2025 06:04 AM EDT
--- OUTSIDE RECORDS SUMMARY | 2025-03-13 06:04 | XMS_ITS ---
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 No Problems Problem Type SNOMED Code ICD Code Onset Dates Problem Status W/U Status Risk Notes Problem Mononeuropathy of lower limb (229311127) Neuritis of left foot (G57.92) Active confirmed Problem Mononeuropathy of lower limb (576963090) Neuritis of right foot (G57.91) Active confirmed Vital Signs Height 7ia53hd in 05/06/2024 Weight 203 lbs 05/06/2024 BMI 28.31 kg/m2 05/06/2024 Encounters Encounter Location Date Provider Diagnosis [facility] [address] [place] [address] 05/06/2024 Raffy Guzman Pain in left foot M79.672 ; Neuritis of left foot G57.92 ; Pain in right foot M79.671 and Neuritis of right foot G57.91 Assessments Encounter Date Diagnosis (ICD Code) Assessment Notes Treatment Notes Treatment Clinical Notes Section Notes 05/06/2024 Pain in left foot (ICD-10 - M79.672) 05/06/2024 Neuritis of left foot (ICD-10 - G57.92) 05/06/2024 Pain in right foot (ICD-10 - M79.671) 05/06/2024 Neuritis of right foot (ICD-10 - G57.91) Plan Of Treatment Pending Test Test Name Order Date X ray : Foot, left 3V 05/06/2024 X ray : Foot, right 3V 05/06/2024 Next Appt Details Follow Up: prn, Reason: Progress Notes * Daniel DARBY MDOB:1950 (74 yo M)Acc No.[id number]:05/06/2024 Progress Notes Patient:?Daniel DARBY Provider:?Raffy Guzman DPM :1950???Age:74 Y???Sex:Male Jairo e:05/06/2024 Address:[address] [place], [place] [id number] Pcp:Monse Knott NP Subjective: * Chief Complaints: * ???Foot pain * HPI: ???Foot Pain:?Nature:?burning.?Location:?Top, Forefoot, B/L.?Duration:?Since roughly the first of the year - 2023.?Onset:?unknown.?Course:?intermittent.?Aggravated:?especially toward the end of the day.?Treatments:?rest/alter normal daily activity , change in shoes , medication ( Gabapentin 100mg at bedtime).? * ROS:?General/Constitutional:?Nausea?denies.?Vomiting?denies.?Hunger Thirst?denies.?Loss appetite?denies.?Chills?denies.?Fatigue?denies.?Fever?denies.?Night Sweats?denies.?Unexplained weight loss?denies.?Unexplained weight gain?denies.?HEENTM:?Dentures?denies.?Dizziness?denies.?Glasses/contacts?denies.?Retinopathy?de nies.?Blurred/double vision?denies.?TMJ?denies.?Discharge/drainage?denies.?Implants?denies.?Sore throat?denies.?Dental implants?denies.?Hard of hearing ?denies.?Difficulty chewing/swallowing/speaking?denies.?Nose bleeds?denies.?Sore mouth?denies.?Respiratory:?On Oxygen?denies.?Pneumonia/pleurisy?denies.?Bronchitis?denies.?Emphysema?denies.?C oughing?denies.?Cough blood?denies.?Shortness of breath?denies.?Wheezing?denies.?Cardiovascular:?Pacemaker?denies.?MVP?denies.?WPW?denies.?CHF?denies.?Heart attack?denies.?Septal defect?denies.?Rapid beat?denies.?Chest pain ?denies.?Atrial Fib.?denies.?Murmur/Palpitations?denies.?Gastrointestinal:?Hemorrhoids?denies.?Stomach/Abdominal pain?denies.?Dark blood stool?denies.?Irritable bowel ?denies.?Constipation?denies.?Diarrhea?denies.?Hematology:?Swelling?denies.?Clots?denies.?Varicose Veins?denies.?Bruising?denies.?Bleeding problem?denies.?Genitourinary:?Blood urine?denies.?Frequent/Painfu/urination/bladder control?denies.?Kidney stones?denies.?Infection (UTI)?denies.?Nephropathy?denies.?sex trans dis (STD)?denies.?Prostate?denies.?Musculoskeletal:?Hammertoes?admits.?Bunions?denies.?Back Pain?denies.?Muscle Cramps/ Resting?denies.?Muscle cramps / walking?denies.?Generalized aches and pains?denies.?Weakness?denies.?Integ.:?Coker?denies.?Scars?denies.?Corns/calluses?denies.?Ingrown nails?denies.?Painful nails?denies.?Open Sores?denies.?Rashes?denies.?Neurologic:?Difficulty sleeping?denies.?Brain disorder?denies.?Numbness?denies.?Balance trouble?denies.?Confusion?denies.?Fainting/blackouts?denies.?Tingling?admits.?Tr emors?denies.? * Medical History:? * Surgical History:?cataract s urgery 2back surgery 02/2006knee surgery, right 02/1972 * Hospitalization/Major Diagno stic Procedure:?Denies Past Hospitalization * Family History:?Mother: dece ased.?Father: , diagnosed [...] past year??No ?Points?0 ?Interpretation?Negative ???Miscellaneous:?Caffeine: no. ?Children: yes, 2. ?Exercise: yes, Golf, fishing. ?Marital status: . ?Occupation: Retired. * Medications:?TakingGabapenti n Medication List reviewed and reconciled with the patientTaking Gabapentin Medication List reviewed and reconciled with the patient * Allergies:?N.K.D.A.yes[Aller gies Verified] Objective: * Vitals:?Ht: 6ot16zc, Wt:203, BMI:28.31, Shoe size: 11, Ht-cm: 180.34 cm, Wt-k.08 kg. * Examination: ???Neurological: ?SENSORY:?Pt relates , burning , Forefoot , B/L , Neurological exam reveals intact sensorium, pain sensation normal, vibration sensation intact, pinprick sensation is normal in the lower extremities , Neurological exam reveals intact sensorium, pain sensation normal, vibration sensation intact, pinprick sensation is normal in the lower extremities, Pt denies, anesthesia, burning, paresthesia, tingling, B/L.?TINEL'S COMPRESSION:?Negative tarsal tunnel, makayla pedis, and medial calcaneal nerves , Medial dorsal cutaneous nerve distribution , Intermediate dorsal cutaneous nerve distribution.?DEEP TENDON REFLEXES:?Achilles, 2/4, B/L.?Neuroma Pain: ?PALPATION:?No interspace pain noted on palpation , No interspace pain noted on palpation.?X-Rays - IMAGING REPORT: ?Clinical Indication(s):?Evaluate Biomechanical Deformity , Evaluate for Fracture.?Views:? 3 views of Foot, AP, LAT, LO, LEFT , 3 views of Foot , AP , LAT , LO , RIGHT.?Findings:?normal bone and soft tissue density consistent for patients age and sex, dorsal degenerative changes of the tarsal joints.?Fracture:?Negative fractures identified?.?General Examination: ?GENERAL APPEARANCE:?Reveals a pleasant, alert, well-nourished, well- developed, well hydrated individual, who demonstrates proper attention to hygiene/body habitus, and is in no acute distress, Pt serves as own?historian for office visit today.?ORIENTED:?person, place, and time.?Vascular: ?DP PULSES (B):?3/4, B/L.?PT PULSES (B):?3/4, B/L.?CAPILLARY FILL TIME:?immediate, all digits, B/L.?TROPHIC CONDITION-TEXTURE/ELASTICITY/TURGOR/HAIR GROWTH (B):?normal, B/L.?TEMPERTURE GRADIENT (C):?warm to cool, proximal to distal, B/L.?PIGMENTATION:?normal, B/L.?EDEMA (C):?absent, B/L.?Dermatologic: ?SKIN FINDINGS:?Skin exam reveals normal texture, elasticity, and turgor. There are no masses. The interspaces are clear.?Orthopedic: ?MUSCLE STRENGTH:?5/5 all groups in a symmetrical fashion , B/L.? Assessment: * Assessment: 1.?Pain in left foot - M79.6 72???2.?Neuritis of left foot - G57.92???Specify :Acute problem, Complicated w/ Multiple Tx Options(4),Dx New problem, Prognosis Uncertain (4)???3.?Pain in right foot - M79.671 (Primary)???4.?Neuritis of right foot - G57.91???Specify :Acute problem, Complicated w/ Multiple Tx Options(4),Dx New problem, Prognosis Uncertain (4)??? Plan: * Treatment: 2.?Pain in left foot?Imaging: X ray : Foot, left 3V * Procedure Codes:?64034 X-RAY EXAM OF RIGHT FOOT 3V, Modifiers: 26 , [id number] X- RAY EXAM OF LEFT FOOT 3V, Modifiers: 26 , LT * Preventive Medicine:? ??Counseling:?Discussion:?-04: Office or other outpatient visit for the evaluation and management of a new patient, which required a medically appropriate history and/or examination and MODERATE level of DECISION MAKING for: 1 OR MORE CHRONIC PROBLEM(S) THATS WORSENING, 2 STABLE CHRONIC PROBLEMS, A NEWLY DIAGNOSED PROBLEM WITH UNCERTAIN PROGNOSIS, AN ACUTE COMPLICATED INJURY WITH MULTIPLE TREATMENT OPTIONS, OR AN ACUTE PROBLEM WITH ACCOMPANYING SYSTEMIC SYMPTOMS, THAT POSE(S) A MODERATE RISK OF MORBIDITY. THIS CONDITION MAY ALSO INCLUDE RX DRUG MANAGEMENT, OR A DECISON FOR MINOR SURGERY. The visit on the day of the encounter encompassed interpreting the data and educating the patient as to the nature of their condition, treatment options available according to their individual PMH, meds, allergies, and overall health/living conditions, as well as any potential risks or complications that may occur from a failure to adhere to, and participate in, the recommended course of therapy. The discussion included a complete verbal, and/or written explanation of the examination results, any x-rays taken, the proposed diagnosis, and outline of the treatment plan. A schedule for future care needs was also explained. The patient verbalized an understanding of the instructions at this time and agreed to be an active participant in their treatment. If the patient should think of any questions or concerns after the visit, I have encouraged the patient to call the office.?Neuritis/Neuropathy:?The patient was counseled on the diagnosis, possible etiologies (including mechanical stress, injury, entrapment, chemotherapy, diabetes, vertebral disk herniation if hx), treatment options, and importance for adherence to recommendations in order to address the patients Neuritis/Neuropathy. The advantages and disadvantages re: Accomidative mechanical support/offloading, Topical vs PO analgesics including aspercream/Voltaren gel/Lidoderm patches/Neurontin/Lyrica along with their potential side effects were discussed with the patient to their satisfaction. Also discussed the use of therapeutic injectable cortisone if needed. Surgical treatment, if considered an option, was discussed as well. If surgery is warranted, we discussed the potential successful outcomes as well as the possible complications such as failure, painful scar, permanent tingling/numbness/neuralgea/or intractable pain. Patient questions re: medication use, dosage, and possible side effects and drug interactions were reviewed and the answers to each understood. If the condition worsens, the patient was instructed to contact the office for an appointment. The patient verbally confirmed a full understanding of the above, The patient was counseled on the diagnosis, possible etiologies (including mechanical stress, injury, entrapment, chemotherapy, diabetes, vertebral disk herniation if hx), treatment options, and importance for adherence to recommendations in order to address the patients Neuritis/Neuropathy. The advantages and disadvantages re: Accomidative mechanical support/offloading, Topical vs PO analgesics including aspercream/Voltaren gel/Lidoderm patches/Neurontin/Lyrica along with their potential side effects were discussed with the patient to their satisfaction. Also discussed the use of therapeutic injectable cortisone if needed. Surgical treatment, if considered an option, was discussed as well. If surgery is warranted, we discussed the potential successful outcomes as well as the possible complications such as failure, painful scar, permanent tingling/numbness/neuralgea/or intractable pain. Patient questions re: medication use, dosage, and possible side effects and drug interactions were reviewed and the answers to each understood. If the condition worsens, the patient was instructed to contact the office for an appointment. The patient verbally confirmed a full understanding of the above.?Orthotics:?I explained to the patient the benefits of OT use. I explained that orthoses are medically necessary to decrease the foot pain through proper mechanical control, support of their foot, I explained to the patient the benefits of OT use. I explained that orthoses are medically necessary to decrease the foot pain through proper mechanical control, support of their foot.?Podiatric Surgery Counseling:?Surgical procedures to treat the patients foot problem were discussed. We reviewed the risks of the procedure (described below) vs not having the procedure (persistent pain, deformity, risk for skin ulceration/infection, loss of toe). We discussed the potential procedure complications including, but not limited to: pain, swelling, bleeding, scarring, numbness, infection, delayed/non healing, floppy/unstable/shorthened toe, recurrence, failure of the procedure, overcorrection leading to plantarflexed/downward positioned toe, recurrence, need for further surgery, as well as the possibility for loss of the toe itself. We discussed the use of IV/Local anesthesia, and the usual post-op course for healing. No guarentees were given. The patient verbally indicated a full understanding of the above conversation, and any other of their questions were answered to their satisfaction, Surgical procedures to treat the patients foot problem were discussed. We reviewed the risks of the procedure (described below) vs not having the procedure (persistent pain, deformity, risk for skin ulceration/infection, loss of toe). We discussed the potential procedure complications including, but not limited to: pain, swelling, bleeding, scarring, numbness, infection, delayed/non healing, floppy/unstable/shorthened toe, recurrence, failure of the procedure, overcorrection leading to plantarflexed/downward positioned toe, recurrence, need for further surgery, as well as the possibility for loss of the toe itself. We discussed the use of IV/Local anesthesia, and the usual post-op course for healing. No guarentees were given. The patient verbally indicated a full understanding of the above conversation, and any other of their questions were answered to their satisfaction.?Shoe Gear Counseling:?The patient and I reviewed the types of shoes they should be wearing. My recommendation included obtaining a well-fitted shoe with a good supportive, non-foldable nor twistable sole, plenty of toe/room for the forefoot, and proper arch support. Based on todays examination, I recommended the patient look for new shoes, by having their feet professionally measured. We discussed that generally the best time of the day for a shoe fitting is the afternoon. Different shoes types and brands to best match the patients occupation and vocation were discussed. Specific brand selection will be up to the patient, their individual foot condition/deformities, and fit. The patient and I reviewed the standard new shoe break in period by wearing them for a few hours a day while checking for redness or sores as wear time is increased. The patient verbally confirmed to understanding the information discussed, The patient and I reviewed the types of shoes they should be wearing. My recommendation included obtaining a well-fitted shoe with a good supportive, non-foldable nor twistable sole, plenty of toe/room for the forefoot, and proper arch support. Based on todays examination, I recommended the patient look for new shoes, by having their feet professionally measured. We discussed that generally the best time of the day for a shoe fitting is the afternoon. Different shoes types and brands to best match the patients occupation and vocation were discussed. Specific brand selection will be up to the patient, their individual foot condition/deformities, and fit. The patient and I reviewed the standard new shoe break in period by wearing them for a few hours a day while checking for redness or sores as wear time is increased. The patient verbally confirmed to understanding the information discussed.?Steriod Injection:?I explained that a steroid and local anesthetic injections are administered to relieve pain and inflammation and thereby meant to improve function. I explained the possible complications including but not limited to signs/symptoms of steroid flare, infection, bruising, atrophy, discoloration of skin, change/deviation in toe position, and that additional injections may be necessary, cortisone post-injection informative educational handout was dispensed to and reviewed with the patient, I explained that a steroid and local anesthetic injections are administered to relieve pain and inflammation and thereby meant to improve function. I explained the possible complications including but not limited to signs/symptoms of steroid flare, infection, bruising, atrophy, discoloration of skin, change/deviation in toe position, and that additional injections may be necessary, cortisone post-injection informative educational handout was dispensed to and reviewed with the patient.? ??Screening/Special Tests:?Fall Risk?Screening:?No falls in the past year ?FALLS: Screening for Future Fall Risk?Have you had any falls with injury in the past year??No * Follow Up:?prn * Images: * Sign off status: Completed true * Provider:?Raffy Guzman DPM Date:?2023 Generated for Armida magaña/Mendoza/Lucian on:?03/13/2025 06:04 AM EDT History and Physical Notes * HPI (History of Present Illness) Category Sub-Category Detail Notes Category Not es Foot Pain Nature: burning Location: Top, Forefoot, B/L Duration: Since roughly the fi rst of the year - 2023 Onset: unknown Course: intermittent Aggravated: especially toward th e end of the day Treatments: rest/alter normal da jos activity , change in shoes , medication ( Gabapentin 100mg at bedtime) Examination Category Sub-Category Detail Notes Category Not es Neuroma Pain PALPATION: No interspace pa in noted on palpation , No interspace pain noted on palpation Neurological SENSORY: Pt relates , bur karina , Forefoot , B/L , Neurological exam reveals intact sensorium, pain sensation normal, vibration sensation intact, pinprick sensation is normal in the lower extremities , Neurological exam reveals intact sensorium, pain sensation normal, vibration sensation intact, pinprick sensation is normal in the lower extremities, Pt denies, anesthesia, burning, paresthesia, tingling, B/L TINEL'S COMPRESSION: Negative tarsal gisele eli, makayla pedis, and medial calcaneal nerves , Medial dorsal cutaneous nerve distribution , Intermediate dorsal cutaneous nerve distribution DEEP TENDON REFLEXES: Achilles, 2/4, B/L Dermatologic SKIN FINDINGS: Skin exam reveal s normal texture, elasticity, and turgor. There are no masses. The interspaces are clear Orthopedic MUSCLE STRENGTH: 5/5 all groups in a symm etrical fashion , B/L General Examination GENERAL APPEARANCE: Reveals a pleasant, alert, well- nourished, well-developed, well hydrated individual, who demonstrates proper attention to hygiene/body habitus, and is in no acute distress, Pt serves as own historian for office visit today ORIENTED: person, place, and t yakelin Vascular DP PULSES (B): 3/4, B/L PT PULSES (B): 3/4, B/L CAPILLARY FILL TIME: immediate, all digi ts, B/L TEMPERTURE GRADIENT (C): warm to cool, p roximal to distal, B/L TROPHIC CONDITION-TEXTURE/ELASTICITY/TURGOR/HAIR GROWTH (B): normal, B/L EDEMA (C): absent, B/L PIGMENTATION: normal, B/L X-Rays - IMAGING REPORT Findings: normal b one and soft tissue density consistent for patients age and sex, dorsal degenerative changes of the tarsal joints Fracture: Negative fractures i dentified Views: 3 views of Foot, AP, LAT, LO, LEFT , 3 views of Foot , AP , LAT , LO , RIGHT Clinical Indication(s): Evaluate Biomech anical Deformity , Evaluate for Fracture
--- OUTSIDE RECORDS SUMMARY | 2025-03-13 06:04 | XMS_ITS | Patient Health Record ---
Author Organization [facility] Address [address] [place] [address] Care Team Providers Care Fuel Pilot Engineer Name Role Phone NONE, NONE Primary Care Provider Ar Perez Jr Unavailable Allergies No Known Allergies Reason For Referral No Information Medications Medication SIG (Take, Route, Frequency, Duration) Notes Start Date End Date Status Multi Vitamin - 1 tablet Orally Once a day for 30 day(s) Active MiraLax (colon prep) 17 GM/SCOOP mixed with Gatorade or Crystal Light Orally begin at 5:00 p.m. the day before the procedure for 1 day 04/27/2023 Active Immunizations Vaccine Route Administration Date Status Comme nts Influenza Unknown 08/26/2022 Administered Problems Problem Type SNOMED Code ICD Code Onset Dates Problem Status W/U Status Risk Notes Problem 002100957 Colon cancer screening (Z12.11) Active confirmed Plan Of Treatment Future Test Test Name Order Date COLONOSCOPY 10/20/2012 COLONOSCOPY 04/27/2023 Insurance Providers Payer Name Payer Address Payer Phone Subscriber Number Group Number Insured Name Patient Relationship to Insured Coverage Start Date Coverage End Date MEDICARE OF [place] [address] [place] [address] [phone] [id number] ISMAEL DARBY Self - patient is the insured [employer] ATT[employer] CLAIMS [address] [place] [address] [id number] MEHNAZISMAEL Self - patient is the insured Medical (General) History Medical History History ICD Code Colonoscopy 01/19, normal, ten-year follo wup Disc disease Arthritis Surgical History Surgery Date(Month/Year) Right knee surgery Herniated disc surgery cateracts 2021
--- OUTSIDE RECORDS SUMMARY | 2025-03-13 06:05 | XMS_ITS | Patient Health Record ---
[facility] Address [address] [facility] [place] [address] Care Team Providers Care Test Cell Technician Name Role Phone Nikos CRUZ, Monse Primary Care Provider Unavail able Raffy Guzman Unavailable [phone] Geoffrey Quinteros Unavailable [phone] Reason For Referral No Information Medications Medication SIG (Take, Route, Fr equency, Duration) Notes Start Date End Date Status Gabapentin Active Gabapentin 300 MG 1 capsule Orally at [...] Risk Notes Problem Mononeuropathy of lower limb (626833538) Neuritis of right foot (G57.91) Active confirmed Problem Mononeuropathy of lower limb (721847140) Neuritis of left foot (G57.92) Active confirmed Vital Signs Height 5sa87xr in 05/06/2024 Weight 203 lbs 05/06/2024 BMI 28.31 kg/m2 05/06/2024 Encounters Encounter Location Date Provider Diagnosis [facility] [address] [place] [address] 05/06/2024 Raffy Guzman Pain in left foot [...] X ray : Foot, right 3V 05/06/2024 Insurance Providers Payer Name Payer Address Payer Phone Subscriber Number Group Number Insured Name Patient Relationship to Insured Coverage Start Date Coverage End Date Medicare National [employer] [address] [place] [address] [id number] Daniel Figueroa Self - patient is the insured [employer] [address] [place] [address] [id number] Daniel Figueroa Self - patient is the insured Medical (General) History Medical History History ICD Code Measles Mumps Chicken pox Surgical History Surgery Date(Month/Year) cataract surgery 06/2022 back surgery 02/2006 knee surgery, right 02/1972
[2025-03-13 10:12] LABS: MANUAL DIFF FLAG NO
[2025-03-13 10:28] LABS: Appearance Urine Clear; Color Urine Yellow; Glucose Urine UA Negative (Negative); Leukocyte Esterase Urine Negative (Negative); Nitrite Urine Negative (Negative); PH 6.5 (5.0-9.0); Urine Blood Negative (Negative); Urine Ketones Negative (Negative); Urine Protein Negative (Neg-Trace)
[2025-03-13 10:33] LABS: Basophils Percent Auto 0.6 % (0-2); Eosinophils Absolute Auto 0.4 X10*3/uL (0.0-0.4); Eosinophils Percent Auto 5.3 % (0-4); Hematocrit 46.8 % (42.0-52.0); Hemoglobin 16.1 g/dl (14.0-18.0); Imm Gran Abs Auto 0.02 X10*3/uL (0.00-0.03); Imm Gran Pct Auto 0.3 % (0.0-0.4); Lymphocytes Absolute Auto 2.6 X10*3/uL (1.2-4.9); Lymphocytes Percent Auto 36.5 % (20-40); Mean Corpuscular HGB Conc 34.4 g/dl (31.0-36.0); Mean Corpuscular Hemoglobin 32.5 pg (27.0-33.0); Mean Corpuscular Volume 94.5 fL (80.0-98.0); Mean Platelet Volume 11.7 fL (9.4-12.4); Monocytes Absolute Auto 0.8 X10*3/uL (0.1-1.2); Monocytes Percent Auto 10.7 % (2-11); Neutrophils Absolute Auto 3.4 x10*3/uL (2.0-8.3); Neutrophils Percent Auto 46.6 % (45-73); Platelet Count 160 X10*3/uL (160-400); Red Blood Count 4.95 X10*6/uL (4.60-5.80); Red Cell Distribution Width 12.5 % (11.0-16.0); White Blood Count 7.2 X10*3/uL (4.8-10.8)
[2025-03-13 10:36] LABS: Estimated Average Glucose 108 mg/dL; Hemoglobin A1C 137.3577 umol/L; Hemoglobin A1c % 5.4 % (<6.0); Total Hemoglobin (HGBA1C) 3927.0009 umol/L
[2025-03-13 10:52] LABS: Alanine Aminotransferase 32 U/L (0-40); Albumin Level 4.2 g/dL (3.5-5.0); Alkaline Phosphatase 69 U/L (39-117); Anion Gap 11 (12-20); Aspartate Amino Transferase 29 U/L (5-37); Bilirubin Total 0.4 mg/dL (0.0-1.0); Blood Urea Nitrogen 26 mg/dL (9-16); Calcium 9.2 mg/dL (8.4-10.2); Carbon Dioxide 27 mmol/L (22-29); Chloride 106 mmol/L (96-108); Cholesterol 180 mg/dL (<200); Estimated Glomerular Filt Rate > 60; Glucose Fasting 88 mg/dL (60-99); HDL Cholesterol 43 mg/dL (>40); LDL Cholesterol Calculated 105 mg/dL (<100); Potassium 3.9 mmol/L (3.3-5.1); Sodium 140 mmol/L (135-145); Total Protein 7.3 g/dL (6.5-8.0); Triglycerides 162 mg/dL (<150)
[2025-03-13 11:08] LABS: TSH reflex Free T4 1.64 uIU/mL (0.32-4.0)
[2025-03-13 11:19] LABS: Creatinine Urine 140.65 mg/dL; Microalbum/Creatinine Ratio Ur 4.2 ug/mg cr (<30)
[2025-03-16 23:53] LABS: PSA, Ultra Sensitive 1.66 ng/mL
== END 2025-03-13 06:03 | disposition home or self-care (01) ==
LOC: HO.HMGCLDS 06:02
PROVIDERS: PCP Nurse Practitioner Family; Visit Provider Nurse Practitioner Family
DX: Z00.00 Encounter for general adult medical examination without abnormal findings (principal); R73.03 Prediabetes; Z12.5 Encounter for screening for malignant neoplasm of prostate; Z13.6 Encounter for screening for cardiovascular disorders
CPT/HCPCS: 36415; 80053; 80061; 81003; 82043; 82570; 83036; 84153; 84443; 85025

== ENCOUNTER 2025-03-20 07:44 | Outpatient (AMB) | payer MEDICARE, SELFPAY ==
--- OUTSIDE RECORDS SUMMARY | 2025-03-20 07:47 | XMS_ITS | Patient Health Record ---
Author Organization [facility] Address [address] [place] [address] Care Team Providers Care Cheese Sprayer Name Role Phone NONE, NONE Primary Care Provider Ar Perez Jr Unavailable [phone] Allergies No Known Allergies Reason For Referral [...] Problem Status W/U Status Risk Notes Problem [id number] Colon cancer screening (Z12.11) Active confirmed Plan Of Treatment Future Test Test Name Order Date COLONOSCOPY 10/20/2012 COLONOSCOPY 04/27/2023 Insurance Providers Payer Name Payer Address Payer Phone Subscriber Number Group Number Insured Name Patient Relationship to Insured Coverage Start Date Coverage End Date MED[place]ARE [place] [address] [facility] [place] [address] [id number] ISMAEL DARBY Self - patient is the insured [employer] ATT[employer] CLAIMS [address] [place] [address] [id number] MEHNAZISMAEL Self - patient is the insured Medical (General) History Medical History History ICD Code Colonoscopy 01/19, normal, ten-year follo wup Disc disease Arthritis Surgical History Surgery Date(Month/Year) Right knee surgery Herniated disc surgery cateracts 2021
--- OUTSIDE RECORDS SUMMARY | 2025-03-20 07:47 | XMS_ITS ---
[facility] Organization [facility] Tori esha [place] Address [address] [place] [address] Care Team Providers Care Bag Machine Tender Name Role Phone Nikos CRUZ, [facility] Primary Care Provider Unavail Raffy Rico Unavailable [phone] Allergies No Known Allergies REASON FOR VISIT [...] Risk Notes Problem Mononeuropathy of lower limb (423435223) Neuritis of left foot (G57.92) Active confirmed Problem Mononeuropathy of lower limb (610080107) Neuritis of right foot (G57.91) Active confirmed Vital Signs Height 4rs22ux in 05/06/2024 Weight 203 lbs 05/06/2024 BMI 28.31 kg/m2 05/06/2024 Encounters Encounter Location Date Provider Diagnosis [facility] [address] [place] [address] 05/06/2024 Raffy Guzman Pain in left foot [...] * Daniel DARBY MDOB:1950 (74 yo M)Acc No.[id number]:05/06/2024 Progress Notes Patient:?Daniel DARBY Provider:?Raffy Guzman DPM :1950???Age:74 Y???Sex:Male Jairo e:05/06/2024 Address:[address] [place], [place] [id number] Pcp:Monse Knott NP Subjective: * Chief Complaints: [...] * Allergies:?N.K.D.A.yes[Aller gies Verified] Objective: * Vitals:?Ht: 6gj11au, Wt:203, BMI:28.31, Shoe size: 11, Ht-cm: 180.34 [...] ray : Foot, left 3V * Procedure Codes:?04349 X-RAY EXAM OF RIGHT FOOT 3V, Modifiers: 26 , UI51747 X- RAY EXAM OF LEFT FOOT 3V, [...] Guzman DPM Date:?2023 Generated for Armida magaña/Mendoza/Lucian on:?03/20/2025 07:47 AM EDT History and Physical Notes * [...]
--- OUTSIDE RECORDS SUMMARY | 2025-03-20 07:47 | XMS_ITS ---
Author Organization [facility] Rene balbuena [place] Address [address] [facility] [place] [address] Care Team Providers Care Spot Welder Body Assembly Name Role Phone Nikos COIL ASSEMBLER, [facility] Primary Care Provider Unavail able Raffy Guzman Unavailable [phone] Geoffrey Quinteros Unavailable [phone] REASON FOR VISIT for sooner apt Medications [...] other tobacco user? No Vital Signs Height 8vi85qe in 06/15/2024 Weight 206 lbs 06/15/2024 BMI 28.73 kg/m2 06/15/2024 Encounters Encounter Location Date Provider Diagnosis [facility] [address] [place] [address] 06/15/2024 Geoffrey Quinteros Plan Of Treatment No Information Progress Notes * Daniel DARBY MDOB:1950 (75 yo M)Acc No.[id number]:06/15/2024 Progress Notes Patient:?Daniel DARBY Provider:?Geoffrey Quinteros DPM :1950???Age:74 Y???Sex:Male Jairo e:06/15/2024 Address: [address] [facility] Pcp:Monse Knott NP Subjective: * Chief Complaints: [...] capsule Orally at bedtime Objective: * Vitals:?Ht: 5zz67ey, Wt:206, BMI:28.73, Shoe size: 11W, Ht-cm: 180.34 cm, Wt-k.44 kg. Assessment: Plan: * Treatment: * Images: * The named appointment provid er may or may not be the originator of this progress note, and it is not deemed complete until electronically signed by the appointment provider. Sign off status: Pending * Provider:?Geoffrey Quinteros DPM Date:? 024 Generated for Armida magaña/Mendoza/Lucian on:?03/20/2025 07:47 AM EDT
--- OUTSIDE RECORDS SUMMARY | 2025-03-20 07:48 | XMS_ITS | Patient Health Record ---
Author Organization [facility] esha [place] Address [address] [facility] [place] [address] Care Team Providers Care Technical Administrator Name Role Phone Nikos CRUZ, Monse Primary Care Provider Unavail able Raffy Guzman Unavailable [phone] Geoffrey Quinteros Unavailable [phone] Reason For Referral No Information Medications Medication [...] Risk Notes Problem Mononeuropathy of lower limb (630790402) Neuritis of right foot (G57.91) Active confirmed Problem Mononeuropathy of lower limb (266256665) Neuritis of left foot (G57.92) Active confirmed Vital Signs Height 5eb08yy in 05/06/2024 Weight 203 lbs 05/06/2024 BMI 28.31 kg/m2 05/06/2024 Encounters Encounter Location Date Provider Diagnosis [facility] [address] [place] [address] 05/06/2024 Raffy Guzman Pain in left foot [...] [employer] [address] [place] [address] [id number] Daniel Figueroa Self - patient is the insured [employer] [address] [place] [address] [id number] Daniel Figueroa Self - patient is the insured Medical (General) History Medical History History ICD Code Measles Mumps Chicken pox Surgical History Surgery Date(Month/Year) cataract surgery 06/2022 back surgery 02/2006 knee surgery, right 02/1972
--- NOTE | 2025-03-20 07:55 | MHC.PC.OV ---
Vital Signs 03/20/25 08:02 03/20/25 08:30 Height 5 ft 11 in Weight 211 lb 6 oz BMI 29.5 BP 148/74 H 140/70 H Blood Pressure Location Lt brachial Rt brachial Position Sitting Sitting Respiration 16 Pulse 75 Pulse Source Pulse Oximeter Temp 98.1 F Temp Source Oral Pulse Oximetry (%) 98 Oxygen Delivery Method Room Air Intake Visit Reasons: 5 mos CPE, labs review Intake Note: patient here for CPE and lab review Rn Bone Marrow Transplant Required: No Allergies No Known Allergies Allergy (Verified 03/20/25 08:06) Medication List - Last Reconciled 03/20/25 by Owen Knott CNP gabapentin 300 mg PO BEDTIME 30 days [Multi Vitamin ] Tobacco use date assessed: 03/20/25 Fall risk assessment: No Falls in past year Last assessed Fall Risk: 03/20/25 Dental Screening Dental Screen Date: 03/20/25 Did you have a dental visit in the last 12 months?: Yes Did you have a dental problem in the last 6 months where you did not have access to dental care?: No Was dental information given to patient?: Patient has dentist HPI HPI Comments History of Present Illness Details 75-year-old male presents for an extended physical exam and review of recent lab results. He admits to taking his gabapentin as prescribed without adverse reactions. Acute issue(s) - None Past Medical History - Prediabetes, BLE peripheral neuropathy, back arthritis, thoracic degenerative disc disease Social History - Nonsmoker. Does not vape. Does not drink alcohol. Denies recreational drug use - Has been making healthy dietary choices. Exercises routinely. Generally sleep well Health maintenance - Last eye exam was in 07/2024 with [facility] [place]. He will sign a release for his PCP to obatin his ophthalmology record - Last dental visit was last week for routine cleaning - Last tetanus vaccine was more than 10 years ago; He will get the Tdap vaccine at his next office visit with the nurse - Has not been vaccinated for the flu this season; declines vaccination - He is up-to-date on the shingles and pneumonia vaccine vaccines - Last colonoscopy was in 06/09/2023: Benign polyp [facility] Medical History Cataracts, bilateral Arthritis Degenerative disc disease, thoracic Surgical History H/O cataract removal with insertion of prosthetic lens History of back surgery H/O knee surgery H/O colonoscopy Family History Family/Other Thyroid disease Social History Household Members: None Both parents involved: No Caregiver staying overnight: No Housing: House Are you a primary career technical education teacher to a significant other at home: No Do you presently have visiting nurse or other home services: No 75 years or older and lives alone: No Alcohol intake: never Patient Tobacco Use Status: Never used Tobacco e-Cigarette/Vaping Use: Never Used Second Hand Smoke Exposure: No service: Yes Current occupational status: retired Current occupational exposures/hazards: No Cognitive needs: No Hearing needs: No Vision needs: No Questionnaire PHQ-9 Over the last 2 weeks, how often have you been bothered by any of the following problems? 1. Little interest or pleasure in doing things: not at all 2. Feeling down, depressed, or hopeless: not at all 3. Trouble falling or staying asleep, or sleeping too much: not at all 4. Feeling tired or having little energy: not at all 5. Poor appetite or overeating: not at all 6. Feeling bad about yourself - or that you are a failure or have let yourself or your family down: not at all 7. Trouble concentrating on things, such as reading the newspaper or watching television: not at all 8. Moving or speaking so slowly that other people could have noticed. Or the opposite - being so fidgety or restless that you have been moving around a lot more than usual: not at all 9. Thoughts that you would be better off or of hurting yourself in some way: not at all Total score: 0 Depression Screening Interpretation: Negative Depression Screening Done: Yes 27639 - PHQ-9 Billing: Yes Source: Developed by Drs. Paul Babb, Stephanie Sousa, Jamie Daniel and colleagues, with an educational sam from [employer]. Thrive Questionnaire Date Thrive assessed: 03/20/25 I am a: Patient What is your living situation today?: I have a steady place to live Within the past 12 months, did the food you bought not last and you didn't have the money to get more?: Never true Within the past 12 months, did you worry whether your food would run out before you got money to buy more?: Never true Do you have trouble paying for medicines?: No Do you have trouble getting transportation to medical appointments?: No Do you have trouble paying your heating and electricity bill?: No Do you have trouble taking care of your child, family member or friend?: No Do you have trouble with day-to-day activities such as bathing, preparing meals, shopping, managing finances, etc.?: No Are you currently unemployed and looking for a job?: No Are you interested in more education?: No Please select the resources that you would like help with: None Currently or been in a relationship where the following occur: No concerns reported THRIVE Score: 0 AUDIT C Alcohol Use Questionnaire (AUDIT-C) 1. How often do you have a drink containing alcohol?: Never 3. How often do you have six or more drinks on one occasion?: Never Total Score: 0 Score Reviewed/Action Taken: Yes HAYDEN-7 AMB Questionnaire HAYDEN-7 Date HAYDEN - 7 assessed: 03/20/25 Feeling nervous, anxious, or on edge: 0 = Not at all Not being able to stop or control worryin = Not at all Worrying too much about different things: 0 = Not at all Trouble relaxin = Not at all Being so restless that it is hard to sit still: 0 = Not at all Becoming easily annoyed or irritable: 0 = Not at all Feeling afraid as if something awful might happen: 0 = Not at all Total HAYDEN-7 score (0-4 normal; 5-9 mild; 10-14 moderate; 15-21 severe): 0 Source: Developed by Drs. Paul Babb, Stephanie Sousa, Jamie Daniel and colleagues, with an educational sam from [employer]. HAYDEN-7 Assessment Billing HAYDEN-7 Assessment Tool: HAYDEN-7 Assessment 71099 Review of Systems Const Details: Denies chills, Denies fatigue, Denies fever(s), Denies headache(s) and Denies weakness HEENT Denies change in vision, Denies dizziness, Denies headache(s), Denies hearing loss, Denies nasal congestion, Denies sinus pain, Denies sinus pressure and Denies sore throat Card Denies chest pain, Denies lightheadedness, Denies dyspnea and Denies other (palpitations) Resp Denies cough, Denies dyspnea and Denies wheezing GI Denies abdominal pain, Denies melena, Denies hematochezia, Denies change in bowel habits, Denies dyspepsia and Denies nausea Denies hematuria and Denies dysuria Musc Denies abnormal gait, Denies myalgias, Denies arthralgias, Denies numbness and Denies tingling Skin/Breast Denies rash, Denies unusual bruising and Denies wounds Neuro Denies abnormal gait, Denies dizziness, Denies headache(s), Denies memory loss, Denies numbness, Denies Sensory deficit (Neuro), Denies tingling and Denies weakness Psych Denies anxiety, Denies depression and Denies memory loss Endo Denies cold intolerance, Denies fatigue, Denies heat intolerance, Denies polydipsia and Denies polyuria Cesar/Lymph Denies easy bleeding and Denies easy bruising Aller/Immun Denies wheezing Physical exam (Primary Care) Vital Signs: Last Vital Signs Temp 98.1 F 03/20/25 08:02 Pulse 75 03/20/25 08:02 Resp 16 03/20/25 08:02 BP 140/70 H 03/20/25 08:30 Pulse Ox 98 03/20/25 08:02 Oxygen Delivery Method Room Air 03/20/25 08:02 BMI result Body Mass Index 29.5 Tobacco/Smoking Status: Tobacco use Status Tobacco use date assessed 03/20/25 03/20/25 08:01 Patient Tobacco Use Status Never used Tobacco 03/20/25 07:56 e-Cigarette/Vaping Use Never Used 03/20/25 07:56 PHQ-9: PHQ-9 Score PHQ-9: Total score 0 03/20/25 08:00 Depression Screening Interpretation: Negative Thrive Assessment: Date of Thrive Assessment Date Thrive assessed 03/20/25 03/20/25 08:00 Currently or been in a relationship where the following occur: No concerns reported Const Other: General: no acute distress, well developed, alert and awake Nutritional Appearance: well nourished Orientation/consciousness: patient oriented x3 HENMT Head: Yes normocephalic and Yes atraumatic Ears: hearing grossly normal bilaterally and TM's normal bilaterally General nose exam: Normal external nose present and Normal nares present Mouth: Normal oral and palatal mucosa present and moist mucous membranes Teeth and gingiva: dentition normal Throat: Yes oropharynx normal Eyes Pupils: Equal, round and reactive pupils present and Pupil accommodation reflex normal EOM: EOMs intact bilaterally Neck Neck: Yes normal visual inspection, Yes no lymphadenopathy and Yes trachea midline Thyroid: Thyroid normal Carotids: no bruits Lymphatic: no lymphadenopathy noted Chest Chest palpation & inspection: normal inspection of the chest Resp Effort & Inspection: normal respiratory effort Auscultation: clear to auscultation bilaterally Cardio Rate: regular rate Rhythm: regular rhythm Heart sounds: S1 normal heart sound present, S2 normal heart sound present, no gallops, + murmurs to aortic, pulmonic, tricuspid, and mitral valves, and no rubs Bruits: no abdominal aortic bruits and no carotid bruits GI Palpation (GI): No Abdominal aortic bruit present, Soft to palpation, nontender, No hepatosplenomegaly present and No Rebound tenderness present Auscultation: normal bowel sounds General: Yes no CVA tenderness Back/Spine/Pelvis Back: no CVA tenderness Cervical Spine: cervical ROM normal and No Cervical spine tenderness Thoracic/Lumbar Spine: thoraco-lumbar ROM normal, No pain with thoraco-lumbar ROM, No thoracic spinal tenderness and No lumbar spinal tenderness Skin General: warm and dry. Normal skin color. Normal skin turgor Lesions: no lesions Rashes: no rashes Trauma: no lacerations or abrasions Wounds: no wounds Nails: normal Neuro General: patient oriented x3, gait normal and CN's II-XI intact bilaterally Cranial nerves: Yes Equal, round and reactive pupils present Cognition (Neuro): normal cognition Gait exam (Neuro): Normal gait present Motor exam (neuro): 5/5 motor strength present throughout Sensory Exam: No Sensory deficit (Neuro) Deep tendon reflexes (DTR's): Right patellar reflex intensity grade: 2+ and Left patellar reflex intensity grade: 2+ Extrem General: Yes normal to inspection, No edema and No calf tenderness Psych Appearance: grossly normal Affect: normal affect Attitude: cooperative Thought process: Normal thought process present Coding Level of Care Code Est Pt Level 4 (55204) Est Pt Prev Care >65y(25968) Diagnoses Normal physical examination, routine Z00.00 Peripheral neuropathy G62.9 Mixed dyslipidemia E78.2 Heart murmur, systolic R01.1 Elevated blood pressure reading without diagnosis of hypertension R03.0 Additional Codes HAYDEN-7 Assessment Billing - HAYDEN-7 Assessment Tool: HAYDEN-7 Assessment 42883 ([id number]) PHQ-9 - 03057 - PHQ-9 Billing: Yes ([id number]) Assessment & Plan Assessment & Plan (1) Normal physical examination, routine: Code(s): Z00.00 - Encounter for general adult medical examination without abnormal findings Category: Medical Plan: No significant functional limitation noted. Continue current treatment regimen. Healthy diet and routine exercise encouraged. Verbalized understanding and agreed with the treatment plan. (2) Peripheral neuropathy: Code(s): G62.9 - Polyneuropathy, unspecified Category: Medical Plan: Continue to take gabapentin as prescribed. Follow up as needed. Verbalized understanding and agreed with the plan. (3) Mixed dyslipidemia: Code(s): E78.2 - Mixed hyperlipidemia Category: Medical Plan: Recent triglycerides and LDL levels are slightly elevated, 162 and 105 respectively. Advised to limit foods high in saturated fat and avoid foods high in trans fat. Routine exercise encouraged. Fast for 10-12 hours, may drink water, and perform lipid panel blood work 2-3 days before next visit. Follow-up for telehealth visit in 3 months. Return sooner with symptoms or concerns. Verbalized understanding and agreed with treatment plan. (4) Heart murmur, systolic: Code(s): R01.1 - Cardiac murmur, unspecified Category: Medical Plan: Heart with regular rate and rhythm. Systolic murmur in the aortic, pulmonic, tricuspid, and mitral valves. He does not have history of cardiovascular disease. He denies cardiac symptoms or any symptoms at this time. Echocardiogram ordered. Will review results and make changes as needed. Verbalized understanding and agreed with the plan. (5) Elevated blood pressure reading without diagnosis of hypertension: Code(s): R03.0 - Elevated blood-pressure reading, without diagnosis of hypertension Category: Medical Plan: Resting blood pressure is 140/70, slightly above goal of less than 140/90. He notes that he maintains a low-salt diet. Low-sodium diet routine exercise encouraged. Follow-up for nurse visit for blood pressure check in 1 month. Verbalized understanding and agreed with the plan. Orders: Orders Lipid Panel 3 Months E78.2 - Mixed hyperlipidemia CA echo transthoracic complete Today R01.1 - Cardiac murmur, unspecified
[2025-03-20 08:02] VITALS: BP 148/74; PULSE 75; RESP 16; TEMP 36.7; O2SAT 98; BMI 29.5
[2025-03-20 08:30] VITALS: BP 140/70
== END 2025-03-20 08:26 | disposition home or self-care (01) ==
LOC: HO.HMCFM 07:45
PROVIDERS: PCP Nurse Practitioner Family; Visit Provider Nurse Practitioner Family
DX: G62.9 Polyneuropathy, unspecified (principal); E78.2 Mixed hyperlipidemia; R01.1 Cardiac murmur, unspecified; R03.0 Elevated blood-pressure reading, without diagnosis of hypertension

== ENCOUNTER → 2025-03-20 07:44 | Outpatient (BNVA) | payer MEDICARE, SELFPAY | PROVIDERS: PCP Nurse Practitioner Family; Visit Provider Nurse Practitioner Family | DX: Z00.00 Encounter for general adult medical examination without abnormal findings (principal); G62.9 Polyneuropathy, unspecified; E78.2 Mixed hyperlipidemia; R01.1 Cardiac murmur, unspecified; R03.0 Elevated blood-pressure reading, without diagnosis of hypertension | CPT/HCPCS: 96127; 99212 ==

== ENCOUNTER → 2025-04-14 12:34 | Outpatient (REF) | payer MEDICARE, SELFPAY ==
--- OUTSIDE RECORDS SUMMARY | 2025-04-14 12:37 | XMS_ITS ---
Author Organization [facility] Rene balbuena [place] Address [address] [facility] [place] [address] Care Team Providers Care Pharmacy Manager Name Role Phone Nikos SUPERVISOR CALIBRATION, [facility] Primary Care Provider Unavail able Raffy Guzman Unavailable [phone] Geoffrey Quinteros Unavailable [phone] REASON FOR VISIT for sooner apt Medications [...] other tobacco user? No Vital Signs Height 1rf74oc in 06/15/2024 Weight 206 lbs 06/15/2024 BMI 28.73 kg/m2 06/15/2024 Encounters Encounter Location Date Provider Diagnosis [facility] [address] [place] [address] 06/15/2024 Geoffrey Quinteros Plan Of Treatment No Information Progress Notes * Daniel DARBY MDOB:1950 (75 yo M)Acc No.[id number]:06/15/2024 Progress Notes Patient:?Daniel DARBY Provider:?Geoffrey Quinteros DPM :1950???Age:74 Y???Sex:Male Jairo e:06/15/2024 Address: [address] [facility] Pcp:Monse Knott NP Subjective: * Chief Complaints: [...] capsule Orally at bedtime Objective: * Vitals:?Ht: 2kc53fl, Wt:206, BMI:28.73, Shoe size: 11W, Ht-cm: 180.34 cm, Wt-k.44 kg. Assessment: Plan: * Treatment: * Images: * The named appointment provid er may or may not be the originator of this progress note, and it is not deemed complete until electronically signed by the appointment provider. Sign off status: Pending * Provider:?Geoffrey Quinteros DPM Date:? 024 Generated for Armida magaña/Mendoza/Lucian on:?04/14/2025 12:37 PM EDT
--- NOTE | 2025-04-14 12:38 | CA_ITS ---
Transthoracic Echocardiogram Patient (Last, First, Middle): Daniel Figueroa M Gender: Male Date of : 1950 Age: 75 Procedure Date: 04/14/2025 Procedure Type: Transthoracic Echocardiogram Location: OP Height: 180.34 cm Weight: 95.71 kg BSA: 2.16 m2 Heart Rate: 78 bpm BP: 140 / 70 mmHg Spinning Machine Tender: RUPAL Referring MD: Owen Knott CNP Symptoms: R01.1 - Cardiac murmur, unspecified Study Quality: Adequate ECG Rhythm: Sinus Conclusions: - The left ventricular systolic function is normal. The calculated ejection fraction is 65% by biplane method. - There is moderate calcification of the aortic valve. There is mild aortic valve stenosis. Findings Left Ventricle Normal left ventricular cavity size. The left ventricular systolic function is normal. The calculated ejection fraction is 65% by biplane method. There is no evidence of regional wall motion abnormalities. Evidence suggests grade I (mild) diastolic dysfunction. There is mild septal asymmetric hypertrophy. Right Ventricle Normal right ventricular cavity size and systolic function. Atria Both atria are normal in size. Aortic Valve There is moderate calcification of the aortic valve. There is mild aortic valve stenosis. Trace to mild aortic regurgitation. Mitral Valve The mitral valve appears normal. There is trace mitral valve regurgitation. There is no mitral valve stenosis. Pulmonic Valve There is trace pulmonic valve regurgitation. Tricuspid Valve Normal tricuspid valve structure. There is mild tricuspid valve regurgitation. There is no evidence of pulmonary hypertension. Great Vessels The asc aorta is normal in size. Venous The inferior vena cava is normal in size and collapses greater than 50% with inspiration. Pericardium/Pleural There is no evidence of pericardial effusion. Prior Study Comparison No prior study available for comparison. Measurements 2D Linear Measurements IVSd: 1.19 0.6-0.9/0.6-1.0 cm LVIDd: 4.88 3.9-5.3/4.2-5.9 cm LVIDd Index: 2.26 2.4-3.2/2.2-3.1 cm/m2 LVIDs: 2.78 2.0-3.6 cm LVPWd: 0.81 0.7-1.1 cm LA Diam: 3.60 2.7-3.8/3.0-4.0 cm LAIDs Index: 1.67 1.5-2.3 cm/m2 LV Mass: 218.12 67-162/88-224 g LV Mass Index: 100.98 43-95/49-115 g/m2 LVOT Diam: 2.30 3.0+(-)1.3 cm 2D Systolic Function EF 4C: 65.20 >55% EF 2C: 61.90 >55% EF BiP: 65.00 >55% Mitral Valve MV Pk E: 0.73 MV PK A: 0.95 MV Decel Time: 235.00 E/A: 0.80 E'Lateral: 7.07 E'Medial: 4.79 E/E' Med: 15.20 E/E' Lat: 10.30 PHT: 69.00 MVA PHT: 3.19 Decel Gentry: 3.10 Aortic Valve AoV Pk Moshe: 2.79 AoV Mn Moshe: 2.00 AoV VTI: 0.57 AoV Pk Grad: 31.00 Aov Mn Grad: 18.00 CHEKO Cont.VTI: 1.56 AI Pk Moshe: 4.08 AI Gentry: 2.20 LVOT LVOT Pk Moshe: 1.16 LVOT Mn Moshe: 0.73 LVOT VTI: 0.21 LVOT Pk Grad: 5.00 LVOT Mn Grad: 3.00 LVOT Diam: 2.30 LVOT Area: 4.15 Diastolic Function MV Pk E: 0.73 MV Pk A: 0.95 E/A: 0.80 E'Medial: 4.79 E/E' Med: 15.20 E' Laterial: 7.07 E/E' Lat: 10.30 Right Ventricle TAPSE (mm): 19.90 TVS' Moshe: 14.20 Tricuspid Valve TR Pk Moshe: 2.14 TR Pk Grad: 18.00 RA Press: 3.00 RVSP: 21.00 Great Vessels Aorta Sinus of Valsalva: 3.30 2.0-3.5 cm Ao Asc: 3.90 2.1-3.4 cm Pulmonary Veins Pulm Vein S/D 1.70 Pulmonary Valve PV Pk Moshe: 0.92 Peak PV Grad: 3.00 Updated in Other Vendor System with Status of Final Jluis Ashraf MD electronically signed on 04/15/2025 1:22:30 PM with status of Final
== END ==
LOC: HO.CARD 12:34
PROVIDERS: PCP Nurse Practitioner Family; Visit Provider Nurse Practitioner Family
DX: R01.1 Cardiac murmur, unspecified (principal)
CPT/HCPCS: 93306

== ENCOUNTER → 2025-04-14 12:38 | Outpatient (BNV) | payer MEDICARE, SELFPAY | PROVIDERS: PCP Nurse Practitioner Family; Visit Provider Internal Medicine | DX: I70.0 Atherosclerosis of aorta (principal); I35.2 Nonrheumatic aortic (valve) stenosis with insufficiency; I34.0 Nonrheumatic mitral (valve) insufficiency | CPT/HCPCS: 93306 ==

== ENCOUNTER → 2025-04-21 08:44 | Outpatient (BNVA) | payer MEDICARE, SELFPAY | PROVIDERS: PCP Nurse Practitioner Family; Visit Provider Nurse Practitioner Family ==

== ENCOUNTER 2025-06-12 08:59 | Outpatient (AMB) | payer MEDICARE, SELFPAY ==
--- OUTSIDE RECORDS SUMMARY | 2024-06-15 05:30 | XMS_ITS ---
Author Organization [facility] Tori es[address] [place] Address [address] [place] [address] Care Team Providers Care Sliver Lap Machine Tender Name Role Phone Nikos BARREL COATER, [facility] Primary Care Provider Unavail able Raffy Guzman Unavailable [phone] Geoffrey Quinteros Unavailable [phone] REASON FOR VISIT for sooner apt Medications [...] other tobacco user? No Vital Signs Height 5pt32ad in 06/15/2024 Weight 206 lbs 06/15/2024 BMI 28.73 kg/m2 06/15/2024 Encounters Encounter Location Date Provider Diagnosis [facility] [address] [place] [address] 06/15/2024 Geoffrey Quinteros Plan Of Treatment No Information Progress Notes * Daniel DARBY MDOB:1950 (75 yo M)Acc No.[id number]:06/15/2024 Progress Notes Patient: Shanon DEEDaniel Nice Provider: Ricky Quinteros DPM :1950 A ge:74 Y S ex:Male Date:06/15/2024 Address:[address] [place] [address], [id number] Pcp:Monse Knott NP Subjective: * Chief Complaints: [...] enies. C ardiovascular: Pacemaker d enies. 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 W PW d enies. C [...] at bedtime Objective: * Vitals: H t: 9cn53sh, Wt:206, BMI:28.73, Shoe size: 11W, Ht-cm: 180.34 cm, Wt-k.44 kg. Assessment: Plan: * Treatment: * Images: * The named appointment provid er may or may not be the originator of this progress note, and it is not deemed complete until electronically signed by the appointment provider. Sign off status: Pending * Provider: Ricky Quinteros DPM Date: 0 06/15/2024 Generated for Armida magaña/Mendoza/Slimeitting on: 06/12/2025 09:25 AM EDT
--- NOTE | 2025-06-12 09:06 | A.OFFPC_ITS ---
Vital Signs 06/12/25 09:18 06/12/25 09:23 Height 5 ft 11 in Weight 205 lb 6 oz BMI 28.6 BP 140/82 H 128/80 Blood Pressure Location Lt brachial Lt brachial Position Sitting Sitting Respiration 14 Pulse 83 Pulse Source Pulse Oximeter Temp 97.7 F Temp Source Temporal Artery Scan Pulse Oximetry (%) 96 Oxygen Delivery Method Room Air Intake Visit Reasons: fu from nurse visit of blood pressure Intake Note: Daniel presents in the office today for hypertension. Allergies No Known Allergies Allergy (Verified 06/12/25 09:33) Medication List - Last Reconciled 06/12/25 by Owen Knott CNP gabapentin 300 mg PO BEDTIME 90 days lisinopril 5 mg PO DAILY 30 days [Multi Vitamin ] Tobacco use date assessed: 06/12/25 Fall risk assessment: No Falls in past year Last assessed Fall Risk: 06/12/25 Dental Screening Dental Screen Date: 06/12/25 Did you have a dental visit in the last 12 months?: Yes Did you have a dental problem in the last 6 months where you did not have access to dental care?: No Was dental information given to patient?: Patient has dentist HPI HPI Comments History of Present Illness Details 75-year-old male presents for hypertensi on follow-up. He admits to taking lisinopril as prescribed without adverse reactions. He notes he has been making healthy dietary choices, including low-sodium. He offers no complaints and denies acute symptoms at this time. [facility] Medical History Cataracts, bilateral Arthritis Degenerative disc disease, thoracic Surgical History H/O cataract removal with insertion of prosthetic lens History of back surgery H/O knee surgery H/O colonoscopy Family History Family/Other Thyroid disease Social History Household Members: None Both parents involved: No Caregiver staying overnight: No Housing: House Are you a primary ocular care aide to a significant other at home: No Do you presently have visiting nurse or other home services: No 75 years or older and lives alone: No Alcohol intake: never Patient Tobacco Use Status: Never used Tobacco e-Cigarette/Vaping Use: Never Used Second Hand Smoke Exposure: No service: Yes Current occupational status: retired Current occupational exposures/hazards: No Cognitive needs: No Hearing needs: No Vision needs: No Questionnaire Thrive Questionnaire Date Thrive assessed: 03/20/25 I am a: Patient What is your living situation today?: I have a steady place to live Within the past 12 months, did the food you bought not last and you didn't have the money to get more?: Never true Within the past 12 months, did you worry whether your food would run out before you got money to buy more?: Never true Do you have trouble paying for medicines?: No Do you have trouble getting transportation to medical appointments?: No Do you have trouble paying your heating and electricity bill?: No Do you have trouble taking care of your child, family member or friend?: No Do you have trouble with day-to-day activities such as bathing, preparing meals, shopping, managing finances, etc.?: No Are you currently unemployed and looking for a job?: No Are you interested in more education?: No Please select the resources that you would like help with: None Currently or been in a relationship where the following occur: No concerns reported THRIVE Score: 0 HAYDEN-7 AMB Questionnaire HAYDEN-7 Date HAYDEN - 7 assessed: 03/20/25 Source: Developed by Drs. Paul Babb, Stephanie Sousa, Jamie Daniel and colleagues, with an educational sam from [employer]. Review of Systems Const Details: Const Denies chills, Denies fatigue, Denies fever(s), Denies headache(s) and Denies weakness ENT Denies dizziness and Denies headache(s) Card Denies chest pain, Denies lightheadedness, Denies dyspnea and Denies other (Palpitations) Resp Denies cough, Denies dyspnea, Denies wheezing and Denies other ( shortness of breath) GI Denies abdominal pain, Denies melena, Denies hematochezia, Denies change in bowel habits, Denies dyspepsia and Denies nausea Denies hematuria and Denies dysuria Musc Denies abnormal gait, Denies myalgias, Denies arthralgias, Denies numbness and Denies tingling Skin/Breast Denies rash, Denies unusual bruising and Denies wounds Neuro Denies abnormal gait, Denies dizziness, Denies headache(s), Denies memory loss, Denies numbness, Denies Sensory deficit (Neuro), Denies tingling and Denies weakness Psych Denies anxiety, Denies depression, Denies memory loss Endo Denies cold intolerance, Denies fatigue, Denies heat intolerance, Denies polydipsia and Denies polyuria Aller/Immun Denies wheezing Physical exam (Primary Care) Tobacco/Smoking Status: Tobacco use Status Tobacco use date assessed 03/20/25 06/12/25 09:07 Patient Tobacco Use Status Never used Tobacco 06/12/25 09:07 e-Cigarette/Vaping Use Never Used 06/12/25 09:07 Thrive Assessment: Date of Thrive Assessment Date Thrive assessed 03/20/25 06/12/25 09:07 Currently or been in a relationship where the following occur: No concerns reported Const Other: General: no acute distress and well developed Nutritional Appearance: well nourished Orientation/consciousness: patient oriented x3 HENMT Head: Yes normocephalic and Yes atraumatic Eyes General: appearance normal, both eyes and all related structures Pupils: Equal, round and reactive pupils present EOM: EOMs intact bilaterally Resp Effort & Inspection: normal respiratory effort Auscultation: clear to auscultation bilaterally Cardio Rate: regular rate Rhythm: regular rhythm Heart sounds: S1 normal heart sound present, S2 normal heart sound present, no gallops, no murmurs and no rubs GI Palpation (GI): No Abdominal aortic bruit present, Soft to palpation, nontender, No hepatosplenomegaly present and No Rebound tenderness present Auscultation: normal bowel sounds General: Yes no CVA tenderness Back/Spine/Pelvis Back: no CVA tenderness Cervical Spine: cervical ROM normal and No Cervical spine tenderness Thoracic/Lumbar Spine: thoraco-lumbar ROM normal, No pain with thoraco-lumbar ROM, No thoracic spinal tenderness and No lumbar spinal tenderness Extrem General: Yes normal to inspection, No edema and No calf tenderness Skin General: warm and dry. Normal skin color. Normal skin turgor Neuro General: patient oriented x3, gait normal and no focal neuro deficit Cranial nerves: Yes Equal, round and reactive pupils present Cognition (Neuro): normal cognition Gait exam (Neuro): Normal gait present Sensory Exam: No Sensory deficit (Neuro) Psych Appearance: grossly normal Affect: normal affect Attitude: cooperative Thought process: Normal thought process present Coding Level of Care Code Est Pt Level 3 (15579) Diagnoses Hypertension I10 Heart murmur, systolic R01.1 Mixed dyslipidemia E78.2 Assessment & Plan Assessment & Plan (1) Hypertension: Code(s): I10 - Essential (primary) hypertension Category: Medical Plan: Resting blood pressure is 120/80, within goal of less than 140/90. Continue current treatment regimen. Low-sodium diet encouraged. Follow-up in 3 months or sooner with symptoms or concerns. Verbalized understanding and agreed with the plan. (2) Heart murmur, systolic: Code(s): R01.1 - Cardiac murmur, unspecified Category: Medical Plan: Recent echocardiogram revealed the following: Conclusions: - The left ventricular systolic function is normal. The calculated ejection fraction is 65% by biplane method. - There is moderate calcification of the aortic valve. There is mild aortic valve stenosis. Message sent to assistant research scientist inquiring whether patient needs a follow-up. (3) Mixed dyslipidemia: Code(s): E78.2 - Mixed hyperlipidemia Category: Medical Plan: Advised to limit foods high in saturated fat and avoid foods high in trans fat. Routine exercise encouraged. Encouraged to perform fasting lipid panel blood work this month. Will review results and make changes as needed. Verbalized understanding and agreed with the plan.
[2025-06-12 09:18] VITALS: BP 140/82; PULSE 83; RESP 14; TEMP 36.5; O2SAT 96; BMI 28.6
[2025-06-12 09:23] VITALS: BP 128/80
--- OUTSIDE RECORDS SUMMARY | 2025-06-12 09:26 | XMS_ITS | Patient Health Record ---
Author Organization [facility] Address [address] [place] [id number] Care Team Providers Care Computer Customer Support Specialist Name Role Phone NONE, NONE Primary Care Provider Ar Perez Jr Unavailable [phone] Allergies No Known Allergies Reason For Referral [...] Problem Status W/U Status Risk Notes Problem [id number] Colon cancer screening (Z12.11) Active confirmed Plan Of Treatment Future Test Test Name Order Date COLONOSCOPY 10/20/2012 COLONOSCOPY 04/27/2023 Insurance Providers Payer Name Payer Address Payer Phone Subscriber Number Group Number Insured Name Patient Relationship to Insured Coverage Start Date Coverage End Date MED[place]ARE [place] [address] [facility] [place] [address] [id number] ISMAEL DARBY Self - patient is the insured [employer] CLAIMS [address] [place] [address] [phone] [id number] MEHNAZISMAEL Self - patient is the insured Medical (General) History Medical History History ICD Code Colonoscopy 01/19, normal, ten-year follo wup Disc disease Arthritis Surgical History Surgery Date(Month/Year) Right knee surgery Herniated disc surgery cateracts 2021
== END 2025-06-12 09:47 | disposition home or self-care (01) ==
LOC: HO.HMCFM 09:00
PROVIDERS: PCP Nurse Practitioner Family; Visit Provider Nurse Practitioner Family
DX: I10 Essential (primary) hypertension (principal); R01.1 Cardiac murmur, unspecified; E78.2 Mixed hyperlipidemia

== ENCOUNTER → 2025-06-12 08:59 | Outpatient (BNVA) | payer MEDICARE, SELFPAY | PROVIDERS: PCP Nurse Practitioner Family; Visit Provider Nurse Practitioner Family | DX: I10 Essential (primary) hypertension (principal); R01.1 Cardiac murmur, unspecified; E78.2 Mixed hyperlipidemia | CPT/HCPCS: 99212 ==

== ENCOUNTER 2025-07-20 08:17 | Outpatient (AMB) | payer MEDICARE, SELFPAY ==
--- OUTSIDE RECORDS SUMMARY | 2024-06-15 05:30 | XMS_ITS ---
Author Organization [facility] Tori es[address] [place] Address [address] [place] [address] Care Team Providers Care Customer Engineering Specialist Name Role Phone Nikos GARNETT MACHINE OPERATOR, [facility] Primary Care Provider Unavail able Raffy Guzman Unavailable [phone] Geoffrey Quinteros Unavailable [phone] REASON FOR VISIT for sooner apt Medications [...] other tobacco user? No Vital Signs Height 5ze80cr in 06/15/2024 Weight 206 lbs 06/15/2024 BMI 28.73 kg/m2 06/15/2024 Encounters Encounter Location Date Provider Diagnosis [facility] [address] [place] [address] 06/15/2024 Geoffrey Quinteros Plan Of Treatment No Information Progress Notes * Daniel DARBY MDOB:1950 (75 yo M)Acc No.[id number]:06/15/2024 Progress Notes Patient: Shanon DEEDaniel Nice Provider: Ricky Quinteros DPM :1950 A ge:74 Y S ex:Male Date:06/15/2024 Address:[address] [place] [address], [id number] Pcp:Monse Knott NP Subjective: * Chief Complaints: [...] enies. C ardiovascular: Pacemaker d enies. 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 W PW d enies. C [...] at bedtime Objective: * Vitals: H t: 8ix50ad, Wt:206, BMI:28.73, Shoe size: 11W, Ht-cm: 180.34 cm, Wt-k.44 kg. Assessment: Plan: * Treatment: * Images: * The named appointment provid er may or may not be the originator of this progress note, and it is not deemed complete until electronically signed by the appointment provider. Sign off status: Pending * Provider: Ricky Quinteros DPM Date: 0 06/15/2024 Generated for Armida magaña/Mendoza/Slimeitting on: 0 07/20/2025 09:15 AM EDT
[2025-07-20 08:25] VITALS: BP 130/78; PULSE 75; BMI 28.3
--- NOTE | 2025-07-20 08:25 | MHC.OFFVIS ---
Vital Signs 07/20/25 08:25 Height 5 ft 11 in Weight 202 lb 13.204 oz BMI 28.3 BP 130/78 Blood Pressure Location Lt brachial Position Sitting Pulse 75 Pulse Source Monitor Intake Visit Reasons: Nonrheumatic aortic (valve) stenosis Allergies No Known Allergies Allergy (Verified 06/12/25 09:33) Medication List - Last Reconciled 07/20/25 by Jluis Ashraf MD lisinopril 5 mg PO DAILY 30 days [Multi Vitamin ] HPI Comments Details: The patient is a 75-year-old male presenting with aortic valve stenosis. He reports feeling fine with no history of heart attacks, stents, or significant cardiac events. The patient remains active, engaging in activities such as golf, without experiencing shortness of breath or chest pain. The patient has a history of mild hypertension managed with lisinopril 5 mg daily. He was informed about the nature of aortic valve stenosis, which involves the degeneration of the valve over time, leading to reduced opening and potential turbulence in blood flow. The patient was reassured that the condition is not currently serious and that symptoms such as shortness of breath or inability to perform activities would indicate progression. A subtle heart murmur was noted during the examination, which is consistent with the valve condition. The patient expressed awareness of hearing his heartbeat in quiet settings, which was explained as normal carotid pulsation. [facility] Medical History Cataracts, bilateral Arthritis Degenerative disc disease, thoracic Surgical History H/O cataract removal with insertion of prosthetic lens History of back surgery H/O knee surgery H/O colonoscopy Family History (Updated 07/20/25 @ 08:34 by Suzi Monahan) Family/Other Thyroid disease Father Prostate cancer Mother Heart problem Social History (Updated 07/20/25 @ 08:35 by Suzi Monahan) Household Members: None Both parents involved: No Caregiver staying overnight: No Housing: House Are you a primary child care director to a significant other at home: No Do you presently have visiting nurse or other home services: No 75 years or older and lives alone: No Alcohol intake: current Alcohol intake frequency: holidays/special occasions only Alcohol type: beer Patient Tobacco Use Status: Never used Tobacco e-Cigarette/Vaping Use: Never Used Second Hand Smoke Exposure: No service: Yes Current occupational status: retired Current occupational exposures/hazards: No Cognitive needs: No Hearing needs: No Vision needs: No Review of Systems Const Denies weakness ENT Denies dizziness Card Denies chest pain, Denies chest pain with activity, Denies syncope, Denies rapid heart rate, Denies pedal edema, Denies edema, Denies leg edema, Denies lightheadedness, Reports palpitations, Denies dyspnea, Denies dyspnea on exertion and Denies orthopnea Resp Denies cough, Denies dyspnea and Denies dyspnea on exertion GI Denies hematochezia and Denies change in stool character Musc Denies abnormal gait, Denies muscle cramps, Denies muscle weakness, Denies numbness, Denies radiating pain into limb and Denies tingling Neuro Denies abnormal gait, Denies dizziness, Denies syncope, Denies numbness, Denies tingling and Denies weakness Endo Reports palpitations Physical Exam Vital Signs: Last Vital Signs Pulse 75 07/20/25 08:25 BP 130/78 07/20/25 08:25 BMI result Body Mass Index 28.3 Const General: comfortable and no acute distress Orientation/consciousness: patient oriented x3 HEENT Other: Unremarkable Head: Yes normal to inspection Neck Neck: Yes normal visual inspection Chest Chest palpation & inspection: normal inspection of the chest Resp Auscultation: clear to auscultation bilaterally Cardio Palpation: normal PMI Heart sounds: S1 normal heart sound present, S2 normal heart sound present, no gallops, Murmur heart sound present systolic II/ and at the right sternal border and no rubs GI Palpation (GI): Soft to palpation Back/Spine/Pelvis Other: unremarkable Skin General skin exam: no rashes or lesions noted Neuro General: patient oriented x3 Extrem General: Yes normal to inspection Psych Mental Status: mental status grossly normal Office Procedures EKG Details: EKG with underlying sinus rhythm at 75/Min; low-voltage QRS complexes; no ischemic changes; PACs; [place] [id number]-[id number], Complete Assessment & Plan Assessment & Plan (1) Mild aortic stenosis: Code(s): I35.0 - Nonrheumatic aortic (valve) stenosis Category: Medical Plan: The patient was informed that the aortic valve stenosis is not currently severe and does not require immediate intervention. Regular monitoring is recommended, with follow-up evaluations suggested every 2-3 years unless symptoms develop. A stress test was discussed as an option to assess for any potential blockages, although it was deemed optional given the patient's current activity level and lack of symptoms. (2) Hypertension: Code(s): I10 - Essential (primary) hypertension Category: Medical Plan: The patient's hypertension is currently managed with lisinopril 5 mg daily, and no changes to this regimen were discussed during the visit. Plan Discussion Notes I discussed with the patient that his aortic valve stenosis is not currently severe and does not require immediate intervention. Regular follow-up evaluations every 2-3 years were recommended unless symptoms develop. We also discussed the option of a stress test to assess for potential blockages, which is optional given his current activity level and lack of symptoms. The patient's hypertension management with lisinopril was reviewed, and no changes were deemed necessary. The subtle heart murmur was noted to be consistent with the valve condition and requires no immediate action beyond routine monitoring. Patient was informed and verbally consented to the use of an ambient scribe for clinic note documentation during this visit. Orders: Orders CA stress test Today I25.10 - Atherosclerotic heart disease of [place] coronary artery without angina pectoris Patient Instructions: - Continue taking lisinopril 5 mg daily as prescribed. - Monitor for any new symptoms such as shortness of breath or chest pain and report them immediately. - Follow up in 2 years for reevaluation of the aortic valve stenosis unless symptoms develop sooner. - Consider a stress test if there are concerns about potential blockages, although it is optional at this time. Coding Level of Care Code New Pt Level 4 (14377) Diagnoses Mild aortic stenosis I35.0 Hypertension I10 CPT Codes EKG - CPT: 31744-[id number], Complete ([id number])
--- OUTSIDE RECORDS SUMMARY | 2025-07-20 09:15 | XMS_ITS | Patient Health Record ---
Author Organization [facility] Address [address] [place] [address] Care Team Providers Care Anodic Treater Name Role Phone NONE, NONE Primary Care [...] Problem Status W/U Status Risk Notes Problem [id number] Colon cancer screening (Z12.11) Active confirmed Plan Of Treatment Future Test Test Name Order Date COLONOSCOPY 10/20/2012 COLONOSCOPY 04/27/2023 Insurance Providers Payer Name Payer Address Payer Phone Subscriber Number Group Number Insured Name Patient Relationship to Insured Coverage Start Date Coverage End Date [place]ARE [place] [address] [place] [address] [id number] ISMAEL DARBY Self - patient is the insured [employer] ATT[employer] CLAIMS [address] [place] [address] [id number] MEHNAZISMAEL Self - patient is the insured Medical (General) History Medical History History ICD Code Colonoscopy 01/19, normal, ten-year follo wup Disc disease Arthritis Surgical History Surgery Date(Month/Year) Right knee surgery Herniated disc surgery cateracts 2021
--- OUTSIDE RECORDS SUMMARY | 2025-07-20 09:16 | XMS_ITS | Patient Health Record ---
Author Organization [facility] [place] Address [address] [place] [address] Care Team Providers Care Train Director Name Role Phone Nikos CRUZ, [facility] Primary Care Provider Unavail able Raffy Guzman Unavailable [phone] Reason For Referral No Information Medications Medication [...] Risk Notes Problem Mononeuropathy of lower limb (791408946) Neuritis of right foot (G57.91) Active confirmed Problem Mononeuropathy of lower limb (727352816) Neuritis of left foot (G57.92) Active confirmed Plan Of Treatment Pending Test Test Name Order Date X ray : Foot, left 3V 05/06/2024 X ray : Foot, right 3V 05/06/2024 Insurance Providers Payer Name Payer Address Payer Phone Subscriber Number Group Number Insured Name Patient Relationship to Insured Coverage Start Date Coverage End Date Medicare National [employer] [address] [place] [address] [id number] Daniel Figueroa Self - patient is the insured [facility] [address] [place] [address] [id number] Daniel Figueroa Self - patient is the insured Medical (General) History Medical History History ICD Code Measles Mumps Chicken pox Surgical History Surgery Date(Month/Year) cataract surgery 06/2022 back surgery 02/2006 knee surgery, right 02/1972
== END 2025-07-20 08:49 | disposition home or self-care (01) ==
LOC: HO.HCS 08:18
PROVIDERS: PCP Nurse Practitioner Family; Visit Provider Internal Medicine
DX: I35.0 Nonrheumatic aortic (valve) stenosis (principal); I10 Essential (primary) hypertension; I49.3 Ventricular premature depolarization
CPT/HCPCS: 93010; 99214

== ENCOUNTER → 2025-07-20 08:17 | Outpatient (BNVA) | payer MEDICARE, SELFPAY | PROVIDERS: PCP Nurse Practitioner Family; Visit Provider Internal Medicine | DX: I35.0 Nonrheumatic aortic (valve) stenosis (principal); I10 Essential (primary) hypertension | CPT/HCPCS: 93005; 99212 ==

== ENCOUNTER → 2025-08-28 07:35 | Outpatient (REF) | payer MEDICARE, SELFPAY ==
--- OUTSIDE RECORDS SUMMARY | 2024-06-15 05:30 | XMS_ITS ---
Author Organization [facility] Tori es[address] [place] Address [address] [place] [address] Care Team Providers Care Chrome Plater Name Role Phone Nikos HOOP COILER, [facility] Primary Care Provider Unavail able Raffy Guzman Unavailable [phone] Geoffrey Olguin Unavailable [phone] REASON FOR VISIT for sooner apt Medications [...] other tobacco user? No Vital Signs Height 1ug64dt in 06/15/2024 Weight 206 lbs 06/15/2024 BMI 28.73 kg/m2 06/15/2024 Encounters Encounter Location Date Provider Diagnosis [facility] [address] [place] [address] 06/15/2024 Geoffrey Olguin Plan Of Treatment No Information Progress Notes * Daniel DARBY MDOB:1950 (75 yo M)Acc No.[id number]:06/15/2024 Progress Notes Patient: Shanon Daniel BLANCO Provider: Ricky Quinteros DPM :1950 A ge:74 Y S ex:Male Date:06/15/2024 Address:[address] [place] [address], [id number] Pcp:Monse Knott NP Subjective: * Chief Complaints: [...] enies. C ardiovascular: Pacemaker d enies. 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 W PW d enies. C [...] at bedtime Objective: * Vitals: H t: 7sp58nk, Wt:206, BMI:28.73, Shoe size: 11W, Ht-cm: 180.34 cm, Wt-k.44 kg. Assessment: Plan: * Treatment: * Images: * The named appointment provid er may or may not be the originator of this progress note, and it is not deemed complete until electronically signed by the appointment provider. Sign off status: Pending * Provider: Ricky Quinteros DPM Date: 0 06/15/2024 Generated for Armida magaña/Mendoza/Lucian on: 07:38 AM EDT
--- NOTE | 2025-08-28 07:37 | CA_ITS ---
Acquisition Time: 2025-08-28 07:58:58 Total Exercise Time: 00:06:01 Test Indications: CAD Medications: SEE H&P Protocol: ABIGAIL Max HR: 155 BPM 107% of Pred: 144 BPM Max BP: 160/74 mmHG Max Work Load: 7.0 METS Exercise stress test with exercise 6 mins 1 sec of Abigail Protocol, achieving 104% MPHR, without any reported symptoms of CP or SOB, with isolated PACs and PVCs and ventricular couplets, with normotenisve response to exercise. Without any EKG changes meeting criteria for ischemia. In recovery, pt continued to feel well. Test reviewed with Dr. Mandujano. Referred By: Jluis Ashraf Electronically Signed By: Javon North
--- OUTSIDE RECORDS SUMMARY | 2025-08-28 07:38 | XMS_ITS ---
Author Organization Unknown ENCOUNTERS Encounter Performer Location Date Diagnosis Diagnosis Status Outpatient [facility] [address] [place] [id number] Outpatient RUTH SINCLAIR MD [facility] [address] [place] [id number] *Note: Encounters from your own facility or health system may be excluded. Allergies, Adverse Reactions, Alerts Allergen Type Severity Identification Date Medications Name Date Quantity Days Supplied GPI Number
--- OUTSIDE RECORDS SUMMARY | 2025-08-28 07:39 | XMS_ITS | Patient Health Record ---
Author Organization [facility] Address [address] [place] [address] Care Team Providers Care Formula Clerk Name Role Phone NONE, NONE Primary Care Provider Ar Perez Jr Unavailable [phone] Allergies No Known Allergies Reason For Referral No Information Medications Medication SIG (Take, Route, Frequency, Duration) Notes Start Date End Date Status Multi Vitamin - 1 tablet Orally Once a day; Duration: 30 day(s) Active MiraLax (colon prep) 17 GM/SCOOP mixed with Gatorade or Crystal Light Orally begin at 5:00 p.m. the day before the procedure; Duration: 1 day 04/27/2023 Active Immunizations Vaccine Route Administration Date Status Comme nts Influenza Unknown 08/26/2022 Administered Problems Problem Type SNOMED Code ICD Code Onset Dates Problem Status W/U Status Risk Notes Problem Colon cancer screening (791159883) Colon cancer screening (Z12.11) Active confirmed Plan Of Treatment Future Test Test Name Order Date COLONOSCOPY 10/20/2012 COLONOSCOPY 04/27/2023 Insurance Providers Payer Name Payer Address Payer Phone Subscriber Number Group Number Insured Name Patient Relationship to Insured Coverage Start Date Coverage End Date [place] [address] [facility] [place] [address] [id number] MEHNAZ ISMAEL Self - patient is the insured [employer] ATT[employer] CLAIMS [address] [place] [address] [phone] [id number] MEHNAZISMAEL Self - patient is the insured Medical (General) History Medical History History ICD Code Colonoscopy 01/19, normal, ten-year follo wup Disc disease Arthritis Surgical History Surgery Date(Month/Year) Right knee surgery Herniated disc surgery cateracts 2021
--- OUTSIDE RECORDS SUMMARY | 2025-08-28 07:39 | XMS_ITS | Patient Health Record ---
Author Organization [facility] Rene balbuena [place] Address [address] [place] [address] Care Team Providers Care Rhinestone Setter Name Role Phone Nikos CRUZ, [facility] Primary Care Provider Unavail able Raffy Guzman Unavailable [phone] Reason For Referral No Information Medications Medication [...] Risk Notes Problem Mononeuropathy of lower limb (205718975) Neuritis of right foot (G57.91) Active confirmed Problem Mononeuropathy of lower limb (456149097) Neuritis of left foot (G57.92) Active confirmed Plan Of Treatment Pending Test Test Name Order Date X ray : Foot, left 3V 05/06/2024 X ray : Foot, right 3V 05/06/2024 Insurance Providers Payer Name Payer Address Payer Phone Subscriber Number Group Number Insured Name Patient Relationship to Insured Coverage Start Date Coverage End Date Medicare National Govt Svcs [employer] [address] [place] [address] [id number] Daniel Figueroa Self - patient is the insured [facility] [address] [place] [address] [id number] Daniel Figueroa Self - patient is the insured Medical (General) History Medical History History ICD Code Measles Mumps Chicken pox Surgical History Surgery Date(Month/Year) cataract surgery 06/2022 back surgery 02/2006 knee surgery, right 02/1972
== END ==
LOC: HO.CARD 07:35
PROVIDERS: PCP Nurse Practitioner Family; Visit Provider Internal Medicine
DX: I25.10 Atherosclerotic heart disease of native coronary artery without angina pectoris (principal)
CPT/HCPCS: 93017

== ENCOUNTER → 2025-08-28 07:37 | Outpatient (BNV) | payer MEDICARE, SELFPAY | PROVIDERS: PCP Nurse Practitioner Family | DX: I49.1 Atrial premature depolarization (principal); I49.3 Ventricular premature depolarization | CPT/HCPCS: 93016; 93018 ==

== ENCOUNTER 2025-09-08 06:04 | Outpatient (REF) | payer MEDICARE, SELFPAY ==
--- OUTSIDE RECORDS SUMMARY | 2024-06-15 05:30 | XMS_ITS ---
Author Organization [facility] Tori esha [place] Address [address] [place] [address] Care Team Providers Care Fur Weigher Name Role Phone Nikos FACILITY SALES AND ADMIN, [facility] Primary Care Provider Unavail able Raffy Guzman Unavailable [phone] Geoffrey Olguin Unavailable [phone] REASON FOR VISIT for sooner apt Medications Medication SIG (Take, Route, Fr equency, Duration) Notes Start Date End Date Status Gabapentin 300 MG 1 capsule Orally at bedtime Active Social History Tobacco Use: Social History Observation Description Date Details (start date - stop date) Never Smoker NA - NA Tobacco Use/Smoking Question Answer Notes Are you a: nonsmoker Additional Findings: Tobacco Non-User Current no n-smoker Alcohol Screen Question Answer Notes Did you have a drink containing alcohol in the p ast year? No Points 0 Interpretation Negative Tobacco use other than smoking: Question Answer Notes Are you an other tobacco user? No Vital Signs Height 5pj36we in 06/15/2024 Weight 206 lbs 06/15/2024 BMI 28.73 kg/m2 06/15/2024 Encounters Encounter Location Date Provider Diagnosis [facility] [address] [place] [address] 06/15/2024 Geoffrey Olguin Plan Of Treatment No Information Progress Notes * Daniel DARBY MDOB:1950 (75 yo M)Acc No.[id number]:06/15/2024 Progress Notes Patient: Shanon Daniel BLANCO Provider: Ricky Quinteros DPM :1950 A ge:74 Y S ex:Male Date:06/15/2024 Address:[address] [place] [address], [id number] Pcp:Monse Knott NP Subjective: * Chief Complaints: * 1 . For sooner apt. * ROS: G eneral/Constitutional: Nausea d enies. V omiting d enies. H delphine Thirst d enies. L oss appetite d enies. C hills d enies. F atigue d enies.?Fever d enies. N ight Sweats d enies. U nexplained weight loss d enies. U nexplained weight gain d enies. H EENTM: Dentures d enies. D izziness d enies. G lasses/contacts d enies. R etinopathy d enies. B lurred/double vision d enies. T MJ?denies. D ischarge/drainage d enies. I mplants d enies. S ore throat d enies. D ental implants a dmits. H rashmi of hearing d enies. D ifficulty chewing/swallowing/speaking d enies. N ose bleeds d enies. S ore mouth d enies. ? R espiratory: On Oxygen d enies. P neumonia/pleurisy d enies.?Bronchitis d enies. E mphysema d enies. C oughing d enies. C ough blood?denies. S hortness of breath d enies. W heezing d enies. C ardiovascular: Pacemaker d enies. M NAVAL INSPECTOR d enies. W PW d enies. C HF d enies. H eart attack d enies. S eptal defect d enies. R apid beat d enies. C hest pain d enies. A trial Fib. d enies. M urmur/Palpitations d enies. G astrointestinal: Hemorrhoids a dmits. S tomach/Abdominal pain d enies. D ark blood stool d enies. I rritable bowel d enies. C onstipation d enies. D iarrhea d enies. H ematology: Swelling d enies. C lots d enies. V aricose Veins d enies. B ruising d enies. B leeding problem d enies. G enitourinary: Blood urine d enies. F requent/Painfu/urination/bladder control d enies. K idney stones d enies. I nfection (UTI) d enies. N ephropathy d enies. s ex trans dis (STD) d enies. P rostate d enies. M usculoskeletal: Hammertoes d enies. B unions a dmits. B ack Pain d enies. M uscle Cramps/ Resting d enies. M uscle cramps / walking d enies.?Generalized aches and pains d enies. W eakness d enies. I nteg.: Coker d enies. S cars a dmits. C orns/calluses?denies. I ngrown nails d enies. P ainful nails d enies. O pen Sores d enies. R ashes d enies. N eurologic: Difficulty sleeping d enies. B rain disorder d enies. N umbness d enies. B alance trouble d enies. C onfusion d enies. F ainting/blackouts d enies. T ingling a dmits. T remors d enies. * Medical History: M easles, Mumps, Chicken pox. * Surgical History: c ataract surgery 06/2022, back surgery 02/2006, knee surgery, right 02/1972. * Family History: M other: . F ather: , diagnosed with Unspecified heart disease, Other malignant neoplasm of unspecified site. * Social History: T obacco Use: T obacco Use/Smoking A re you a: n onsmoker A dditional Findings: Tobacco Non-User C urrent non-smoker Tobacco use other than smoking A re you an other tobacco user? N o D rugs/Alcohol: D rugs H ave you used drugs other than those for medical reasons in the past 12 months? N o Alcohol Screen D id you have a drink containing alcohol in the past year? N o P oints 0 I nterpretation N egative M iscellaneous: C affeine: no. Children: yes. Exercise: yes, Golf, fishing. Marital status: . Occupation: Retired. * Medications: T aking Gabapentin 300 MG Capsule 1 capsule Orally at bedtime Objective: * Vitals: H t: 0vj44la, Wt:206, BMI:28.73, Shoe size: 11W, Ht-cm: 180.34 cm, Wt-k.44 kg. Assessment: Plan: * Treatment: * Images: * The named appointment provid er may or may not be the originator of this progress note, and it is not deemed complete until electronically signed by the appointment provider. Sign off status: Pending * Provider: Ricky Quinteros DPM Date: 0 06/15/2024 Generated for Armida magaña/Mendoza/Lucian on: 06:06 AM EDT
--- OUTSIDE RECORDS SUMMARY | 2025-09-08 06:07 | XMS_ITS | Patient Health Record ---
Author Organization [facility] Address [address] [place] [phone] Care Team Providers Care Mule Rider Name Role Phone NONE, NONE Primary Care [...] Status Risk Notes Problem Colon cancer screening (231250200) Colon cancer screening (Z12.11) Active confirmed Plan Of Treatment Future Test Test Name Order Date COLONOSCOPY 10/20/2012 COLONOSCOPY 04/27/2023 Insurance Providers Payer Name Payer Address Payer Phone Subscriber Number Group Number Insured Name Patient Relationship to Insured Coverage Start Date Coverage End Date [place] [address] [facility] [place] [place] [address] [phone] [id number] MEHNAZ ISMAEL Self - patient is the insured [employer] ATT[employer] CLAIMS [address] [place] [address] [id number] MEHNAZISMAEL Self - patient is the insured Medical (General) History Medical History History ICD Code Colonoscopy 01/19, normal, ten-year follo wup Disc disease Arthritis Surgical History Surgery Date(Month/Year) Right knee surgery Herniated disc surgery cateracts 2021
--- OUTSIDE RECORDS SUMMARY | 2025-09-08 06:07 | XMS_ITS | Patient Health Record ---
Author Organization [facility] Rene balbuena [place] Address [address] [place] [address] Care Team Providers Care Patient Relations Director Name Role Phone Nikos CRUZ, [facility] Primary Care Provider Unavail able Raffy Guzman Unavailable [phone] Reason For Referral No Information Medications Medication [...] Risk Notes Problem Mononeuropathy of lower limb (507977826) Neuritis of right foot (G57.91) Active confirmed Problem Mononeuropathy of lower limb (479150857) Neuritis of left foot (G57.92) Active confirmed Plan Of Treatment Pending Test Test Name Order Date X ray : Foot, left 3V 05/06/2024 X ray : Foot, right 3V 05/06/2024 Insurance Providers Payer Name Payer Address Payer Phone Subscriber Number Group Number Insured Name Patient Relationship to Insured Coverage Start Date Coverage End Date Medicare [employer] [address] [place] [address] [id number] Daniel Figueroa Self - patient is the insured [facility] [address] [place] [address] [id number] Daniel Figueroa Self - patient is the insured Medical (General) History Medical History History ICD Code Measles Mumps Chicken pox Surgical History Surgery Date(Month/Year) cataract surgery 06/2022 back surgery 02/2006 knee surgery, right 02/1972
[2025-09-08 11:04] LABS: Cholesterol 175 mg/dL (<200); HDL Cholesterol 45 mg/dL (>40); Triglycerides 151 mg/dL (<150)
== END 2025-09-08 06:05 | disposition home or self-care (01) ==
LOC: HO.HMGCLDS 06:04
PROVIDERS: PCP Nurse Practitioner Family; Visit Provider Nurse Practitioner Family
DX: E78.2 Mixed hyperlipidemia (principal)
CPT/HCPCS: 36415; 80061

== ENCOUNTER 2025-09-15 08:12 | Outpatient (AMB) | payer MEDICARE, SELFPAY ==
--- NOTE | 2025-09-15 08:24 | MHC.PC.OV ---
Vital Signs 09/15/25 08:27 09/15/25 08:49 Height 5 ft 11 in Weight 203 lb 2 oz BMI 28.3 BP 156/70 H 120/70 Blood Pressure Location Rt brachial Rt brachial Position Sitting Sitting Respiration 16 Pulse 65 Pulse Source Pulse Oximeter Temp 97.3 F Temp Source Oral Pulse Oximetry (%) 97 Oxygen Delivery Method Room Air Intake Visit Reasons: 3 mos HTN Intake Note: patient here for 3 month follow up on HTN Health And Safety Instructor Required: No Allergies No Known Allergies Allergy (Verified 09/15/25 08:27) Tobacco use date assessed: 09/15/25 Fall risk assessment: No Falls in past year Last assessed Fall Risk: 09/15/25 Dental Screening Dental Screen Date: 09/15/25 Did you have a dental visit in the last 12 months?: Yes Did you have a dental problem in the last 6 months where you did not have access to dental care?: No Was dental information given to patient?: Patient has dentist HPI HPI Comments History of Present Illness Details 75-year-old male presents for hypertension and dyslipidemia follow-up. He admits to taking lisinopril as prescribed without adverse reactions. He notes he has been making healthy dietary choices, including low-sodium. He offers no complaints and denies acute symptoms at this time. [facility] Medical History Cataracts, bilateral Arthritis Degenerative disc disease, thoracic Surgical History H/O cataract removal with insertion of prosthetic lens History of back surgery H/O knee surgery H/O colonoscopy Family History (Updated 07/20/25 @ 08:34 by Suzi Monahan) Family/Other Thyroid disease Father Prostate cancer Mother Heart problem Social History (Updated 07/20/25 @ 08:35 by Suzi Monahan) Household Members: None Both parents involved: No Caregiver staying overnight: No Housing: House Are you a primary direct care worker to a significant other at home: No Do you presently have visiting nurse or other home services: No 75 years or older and lives alone: No Alcohol intake: current Alcohol intake frequency: holidays/special occasions only Alcohol type: beer Patient Tobacco Use Status: Never used Tobacco e-Cigarette/Vaping Use: Never Used Second Hand Smoke Exposure: No service: Yes Current occupational status: retired Current occupational exposures/hazards: No Cognitive needs: No Hearing needs: No Vision needs: No Questionnaire Thrive Questionnaire Date Thrive assessed: 03/13/25 I am a: Patient What is your living situation today?: I have a steady place to live Within the past 12 months, did the food you bought not last and you didn't have the money to get more?: Never true Within the past 12 months, did you worry whether your food would run out before you got money to buy more?: Never true Do you have trouble paying for medicines?: No Do you have trouble getting transportation to medical appointments?: No Do you have trouble paying your heating and electricity bill?: No Do you have trouble taking care of your child, family member or friend?: No Do you have trouble with day-to-day activities such as bathing, preparing meals, shopping, managing finances, etc.?: No Are you currently unemployed and looking for a job?: No Are you interested in more education?: No Please select the resources that you would like help with: None Currently or been in a relationship where the following occur: No concerns reported THRIVE Score: 0 HAYDEN-7 AMB Questionnaire HAYDEN-7 Date HAYDEN - 7 assessed: 03/20/25 Source: Developed by Drs. Paul Babb, Stephanie Sousa, Jamie Daniel and colleagues, with an educational sam from [employer]. Review of Systems Const Details: Const Denies chills, Denies fatigue, Denies fever(s), Denies headache(s) and Denies weakness ENT Denies dizziness and Denies headache(s) Card Denies chest pain, Denies lightheadedness, Denies dyspnea and Denies other (Palpitations) Resp Denies cough, Denies dyspnea, Denies wheezing and Denies other ( shortness of breath) GI Denies abdominal pain, Denies melena, Denies hematochezia, Denies change in bowel habits, Denies dyspepsia and Denies nausea Denies hematuria and Denies dysuria Musc Denies abnormal gait, Denies myalgias, Denies arthralgias, Denies numbness and Denies tingling Skin/Breast Denies rash, Denies unusual bruising and Denies wounds Neuro Denies abnormal gait, Denies dizziness, Denies headache(s), Denies memory loss, Denies numbness, Denies Sensory deficit (Neuro), Denies tingling and Denies weakness Psych Denies anxiety, Denies depression, Denies memory loss Endo Denies cold intolerance, Denies fatigue, Denies heat intolerance, Denies polydipsia and Denies polyuria Aller/Immun Denies wheezing Physical exam (Primary Care) Tobacco/Smoking Status: Tobacco use Status Tobacco use date assessed 06/12/25 06/12/25 09:22 Patient Tobacco Use Status Never used Tobacco 07/20/25 08:35 e-Cigarette/Vaping Use Never Used 07/20/25 08:35 Thrive Assessment: Date of Thrive Assessment Date Thrive assessed 03/13/25 09/08/25 13:26 Currently or been in a relationship where the following occur: No concerns reported Const Other: General: no acute distress and well developed Nutritional Appearance: well nourished Orientation/consciousness: patient oriented x3 HENMT Head: Yes normocephalic and Yes atraumatic Eyes General: appearance normal, both eyes and all related structures Pupils: Equal, round and reactive pupils present EOM: EOMs intact bilaterally Resp Effort & Inspection: normal respiratory effort Auscultation: clear to auscultation bilaterally Cardio Rate: regular rate Rhythm: regular rhythm Heart sounds: S1 normal heart sound present, S2 normal heart sound present, no gallops, +murmurs and no rubs GI Palpation (GI): No Abdominal aortic bruit present, Soft to palpation, nontender, No hepatosplenomegaly present and No Rebound tenderness present Auscultation: normal bowel sounds General: Yes no CVA tenderness Back/Spine/Pelvis Back: no CVA tenderness Cervical Spine: cervical ROM normal and No Cervical spine tenderness Thoracic/Lumbar Spine: thoraco-lumbar ROM normal, No pain with thoraco-lumbar ROM, No thoracic spinal tenderness and No lumbar spinal tenderness Extrem General: Yes normal to inspection, No edema and No calf tenderness Skin General: warm and dry. Normal skin color. Normal skin turgor Neuro General: patient oriented x3, gait normal and no focal neuro deficit Cranial nerves: Yes Equal, round and reactive pupils present Cognition (Neuro): normal cognition Gait exam (Neuro): Normal gait present Sensory Exam: No Sensory deficit (Neuro) Psych Appearance: grossly normal Affect: normal affect Attitude: cooperative Thought process: Normal thought process present Coding Level of Care Code Est Pt Level 3 (28904) Diagnoses Hypertension I10 Mixed dyslipidemia E78.2 Assessment & Plan Assessment & Plan (1) Hypertension: Code(s): I10 - Essential (primary) hypertension Category: Medical Plan: Resting blood pressure is 120/70, within goal of less than 140/90. Continue current treatment regimen. Follow-up in 3 months for transfer of care with a new provider, hypertension, and hyperlipidemia. Return sooner with symptoms or concerns. Verbalized understanding and agreed with the plan. (2) Mixed dyslipidemia: Code(s): E78.2 - Mixed hyperlipidemia Category: Medical Plan: Recent triglycerides and LDL levels are slightly elevated, 151 and 100, previous levels were 162 and 105; total cholesterol and HDL levels are normal. Advised to limit foods high in saturated fat and avoid foods high in trans fat. Routine exercise encouraged. Fast for 10-12 hours, may drink water, and perform lipid panel blood work a few days before next visit. Follow-up in 3 months. Verbalized understanding and agreed with the plan. Orders: Orders Lipid Panel 3 Months E78.2 - Mixed hyperlipidemia
[2025-09-15 08:27] VITALS: BP 156/70; PULSE 65; RESP 16; TEMP 36.3; O2SAT 97; BMI 28.3
[2025-09-15 08:49] VITALS: BP 120/70
== END 2025-09-15 08:52 | disposition home or self-care (01) ==
LOC: HO.HMCFM 08:13
PROVIDERS: PCP Nurse Practitioner Family; Visit Provider Nurse Practitioner Family
DX: I10 Essential (primary) hypertension (principal); E78.2 Mixed hyperlipidemia

== ENCOUNTER → 2025-09-15 08:12 | Outpatient (BNVA) | payer MEDICARE, SELFPAY | PROVIDERS: PCP Nurse Practitioner Family; Visit Provider Nurse Practitioner Family | DX: I10 Essential (primary) hypertension (principal); E78.2 Mixed hyperlipidemia | CPT/HCPCS: 99212 ==